=== PATIENT | male | born 1955 | race Two or more races ===

== ENCOUNTER 2024-12-29 18:04 | Inpatient (IN) | payer MEDICAID, SELFPAY ==
[2024-12-29 18:19] VITALS: BP 105/64; PULSE 93; RESP 17; TEMP 37.5; O2SAT 90; BMI 24.0
--- NOTE | 2024-12-29 18:32 | EKG_ITS ---
[facility] Test Date: 2024-12-29 Pat Name: YOSSI MARQUEZ Department: Room: - Gender: Male Non Clinical Advisor: : 1955 Requested By: Josemanuel Sahni Order Number: [id number] Reading MD: Josemanuel Sahni Measurements Intervals [place] Rate: 86 P: 77 DC: 131 QRS: 83 QRSD: 82 T: 54 QT: 348 QTc: 418 Interpretive Statements SINUS RHYTHM WITH SINUS ARRHYTHMIA POSSIBLE LEFT ATRIAL ENLARGEMENT [-0.1mV P-WAVE IN V1/V2] Compared to ECG 01/01/2020 23:06:50 No significant changes /store/S0/[id number]/ecg/[id number].pdf
--- NOTE | 2024-12-29 18:32 | XR_ITS ---
Reason redo views The vertebrae are reviewed 2 views ABDOMEN: December 29, 2024 1846 hours INDICATION: Shortness of breath chest pain coughing for 3 weeks. FINDINGS: Prominent pneumonia in the lingular segment left upper lobe Normal heart size Moderate hyperexpansion Prominent central pulmonary arteries Accentuation of basilar bronchovascular markings Prominent osteopenia IMPRESSION: COPD Significant pneumonia lingular segment left upper lobe Suspicious for pulmonary artery hypertension Bronchitis pattern
--- NOTE | 2024-12-29 18:32 | XR_ITS ---
Examination: Duplex scan of the upper extremity, unilateral left. Date and time of exam: December 29, 2024 1854 hours INDICATIONS: Left arm swelling and pain today Technique: Duplex scan of the extremity veins using B-mode/grayscale imaging and Doppler spectral analysis and color flow Attention is directed to internal echogenicity, compression and augmentation involving these veins, color flow assessment, spectral analysis Findings: Positive for occlusive acute deep vein thrombus involving the left subclavian vein. IMPRESSION: Positive for acute deep vein thrombus involving the left subclavian vein
--- NOTE | 2024-12-29 18:33 | EDRME_ITS ---
Rapid Medical Screening Exam [facility] Arrival date/time: 12/29/24 18:04 69M with no known PMH (patient smokes and drinks regularly) presents to ED with 1 day of LUE pain and swelling. Patient has also had 1 month of worsening cough and SOB. Patient only recently started going to a PCP and finished a course of some unknown ABX, which did not relieve symptoms. Chief Complaint: Extremity Problem,Nontraumatic Vital signs: Vital Signs Temperature 99.5 F 12/29/24 18:19 Pulse Rate 93 12/29/24 18:19 Respiratory Rate 17 12/29/24 18:19 Blood Pressure 105/64 12/29/24 18:19 Pulse Oximetry (%) 90 L 12/29/24 18:19 Oxygen Delivery Method Room Air 12/29/24 18:19
--- NOTE | 2024-12-29 19:17 | XR_ITS ---
Examination: CTA chest with intravenous contrast 2-D reconstructions 3-D reconstructions, vascular Date and time of exam: December 29, 2024 2042 hours INDICATIONS: Chest pain for cement beginning 2 days ago, positive DVT study left upper extremity today involving the subclavian vein CTDI: vol (mGy) 12 DLP: (mGycm) 376 Technique: Multiple axial sections of the thorax have been obtained. 3 mm slice thickness, from below the hemidiaphragms to above the apices of the lungs. Mediastinal and lung density settings have been obtained. 2-D sagittal and coronal reconstructions. 3-D angiographic renderings, 3-D volume renderings, 3D post processing, vascular maximum intensity projections obtained. Contrast administered is 100 cc Isovue 370 intravenous. Low dose protocols were performed. One or more of the following dose reduction techniques were used; automated exposure control, adjustment of the mA and/or KV according to patient size, use of iterative reconstruction technique. Findings: No thoracic aortic aneurysmal dilatation or dissection No pulmonary artery emboli Bronchiectasis in the right mid lung and lingular segment with pneumonia in the lingular segment Also bronchiectasis in both lower lung zones and mild pneumonia right base 4 cm densely calcified right liver mass No gallstones Abnormal enlargement, hepatic duct 20 mm No hydronephrosis IMPRESSION: Negative for pulmonary artery emboli Bronchiectasis right mid lung lingular segment left upper lobe and both bases Pneumonia lingular segment left upper lobe and right base Recommend hepatobiliary sonography follow-up to evaluate the enlarged common hepatic duct
[2024-12-29] MEDS: ALBUTEROL/IPRATROPIUM (Duoneb) RT SOL 3 ML NEBU INH (19:29)
[2024-12-29 19:30] VITALS: PULSE 84; RESP 18; O2SAT 100
[2024-12-29 19:35] LABS: Lactate (Lactic Acid) 0.8 mMol/L (0.4-2.0)
[2024-12-29 19:38] LABS: Basophils # (Auto) 0.2 Thou/mm3 (0.0-0.2); Basophils % (Auto) 1 % (0-2.5); Eosinophils # (Auto) 1.6 Thou/mm3 (0.0-0.5); Eosinophils % (Auto) 10 % (0-10); Hematocrit 34.0 % (41.0-53.0); Hemoglobin 10.8 g/dL (13.5-16.0); Immature Granulocytes Auto 0.12 Thou/mm3 (0.00-0.00); Lymphocytes # (Auto) 2.1 Thou/mm3 (1.0-4.8); Lymphocytes % (Auto) 13 % (10-50); Mean Corpuscular HGB Conc 31.8 g/dl (31.0-37.0); Mean Corpuscular Hemoglobin 30.5 pg (25.0-35.0); Mean Corpuscular Volume 96 fL (80-100); Monocytes # (Auto) 0.8 Thou/mm3 (0.0-0.8); Monocytes % (Auto) 5 % (0-12); Neutrophils # (Auto) 11.9 Thou/mm3 (1.8-7.7); Neutrophils % (Auto) 71 % (37-80); Nucleated Red Blood Cell # 0.00 Thou/mm3 (0.00-0.00); Nucleated Red Blood Cell % 0 /100 WBC (0); Platelet Count 635 Thou/mm3 (140-440); RDW Standard Deviation 51.1 fL (35.1-43.9); Red Blood Count 3.54 Miln/mm3 (4.50-5.90); White Blood Count 16.7 Thou/mm3 (3.8-10.6)
[2024-12-29 19:58] LABS: INR 1.0 (0.9-1.3); Partial Thromboplastin Time 32.8 Seconds (22.0-36.0); Prothrombin Time 11.2 Seconds (9.0-12.2)
[2024-12-29 20:01] LABS: B-Type Natriuretic Peptide 62 pg/mL (0-100)
[2024-12-29 20:01] LABS: Collection Type, Urine Clean Catch
[2024-12-29 20:02] VITALS: BP 144/70; PULSE 78; RESP 12; TEMP 37.4; O2SAT 94
[2024-12-29 20:04] LABS: Sed Rate (ESR) 102 mm/hr (0-20)
[2024-12-29 20:13] LABS: Alanine Aminotransferase < 7 U/L (10-49); Albumin, Serum 4.1 gm/dL (3.4-4.8); Albumin/Globulin Ratio 1.1 (1.2-2.2); Alkaline Phosphatase 112 U/L (46-116); Anion Gap 8 (7-16); Aspartate Amino Transferase 17 U/L (0-34); BUN/Creatinine Ratio 20 Ratio (12-20); Bilirubin,Total 0.2 mg/dL (0.3-1.2); Blood Urea Nitrogen 18 mg/dL (9-23); C-Reactive Protein 7.7 mg/dL (0.0-0.9); Calcium 8.6 mg/dL (8.3-10.6); Calcium (Corrected) 8.6 mg/dL (8.5-10.1); Carbon Dioxide 26.2 mMol/L (20.0-31.0); Chloride 100 mMol/L (98-107); Creatinine (Component) 0.9 mg/dL (0.6-1.3); Estimated Creatinine Clearance 57.3 mL/min (>60); Globulin 3.7 gm/dL (2.3-3.5); Glucose 107 mg/dL (74-106); Magnesium 1.7 mg/dL (1.6-2.6); Osmolality,Calculated 270 (275-295); Potassium 4.3 mMol/L (3.4-5.1); Procalcitonin 0.09 ng/ml (0.0-0.49); Sodium 134 mMol/L (136-145); Total Protein 7.8 gm/dL (5.7-8.2); Troponin I < 0.002 ng/mL (0.0-0.045); eGFR > 60 See Note
[2024-12-29 20:13] LABS: Amorphous Crystals,Urine Present (Absent); Bacteria,Urine Rare; Bilirubin,Urine Negative (Negative); Blood,Urine 1+ (Negative); Calcium Oxalate Crystals,Urine Rare; Clarity,Urine Clear (Clear/Hazy); Color,Urine Yellow (Lt Yel-Yel); Glucose, Urine Negative (Negative); Hyaline Casts,Urine < 1 /hpf (0-1); Ketones,Urine Negative (Negative); Leukocyte Esterase,Urine Negative (Negative); Nitrite,Urine Negative (Negative); PH,Urine 6.0 (5.0-7.0); Protein,Urine Trace (Neg - Trace); RBC,Urine 7 /hpf (0-3); Specific Gravity,Urine 1.031 (1.001-1.035); Squamous Epithelial Cell,Urine < 1 /hpf (0-5); Urobilinogen,Urine Negative mg/dL (0.0-1.0); WBC,Urine 2 /hpf (0-5)
[2024-12-29 20:16] LABS: Amphetamine/Methamp Scrn,U Negative (Negative); Barbiturate Screen,Urine Negative (Negative); Benzodiazepines Screen,Urine Negative (Negative); Benzoylecgonine Screen, Ur Negative (Negative); Fentanyl Screen,Urine Negative (Negative); Opiate Screen,Urine Negative (Negative); THC Screen,Urine Negative (Negative)
--- NOTE | 2024-12-29 22:52 | PD.EDEXREM ---
ED Extremity Problem RME/HPI General Chief complaint: Extremity Problem,Nontraumatic Stated complaint: Left arm swollen, hot and red Time Seen by Provider: 12/29/24 19:46 Arrival date/time: 12/29/24 18:04 RME / HPI RME / HPI Narrative: 12/29/24 18:04 69M with no known PMH (patient smokes and drinks regularly) presents to ED with 1 day of LUE pain and swelling. Patient has also had 1 month of worsening cough and SOB. Patient only recently started going to a PCP and finished a course of some unknown ABX, which did not relieve symptoms. ------- Dr. Lane?s Main ED Evaluation: 69yo male with a recent dx of COPD presents to the ED for a chief complaint of LUE pain and swelling for the last 3 days. Patient's symptoms have worsened over the last 24 hours, so he came in for evaluation. Patient has been taking Tylenol at home with minimal improvement. Reports associated cough. No fever, chills or any other associated symptoms. Patient is not on steroids. He is a tobacco smoker. NKA. Related Data Home Medications ?Medication ?Instructions ?Recorded ?Confirmed Unobtainable 03/05/20 03/05/20 Allergies Allergy/AdvReac Type Severity Reaction Status Date / Time No Known Allergies Allergy Verified 12/29/24 18:10 Review of Systems Review of Systems Systems Reviewed: All systems reviewed, normal except as documented Past Medical History Past Medical History NEUROLOGIC: Negative Neurological Disorders CARDIAC: Negative Cardiac Disorders, Atrial Fibrillation or Congestive Heart Failure RESPIRATORY: Positive Chronic Obstructive Pulmonary Disease (COPD), Asthma (uses inhaler PRN) and Pneumonia; Negative Respiratory Disorders GASTROINTESTINAL: Negative Gastrointestinal Disorders or Hepatitis GENITOURINARY: Negative Genitourinary Disorders or Renal Disease MUSCULOSKELETAL: Negative Musculoskeletal Disorders ENT: Positive History of ENT Problems and Cataracts ENDOCRINE: Negative Diabetes Mellitus Type 1 or Diabetes Mellitus Type 2 HEMATOLOGIC: Negative Sickle Cell Disease PSYCHO/SOCIAL: Negative Psychiatric Problems, Depression or Anxiety OTHER HISTORY: Negative Autoimmune Disease, Falls, Anesthesia Reactions, MRSA, Human Immunodeficiency Virus (HIV), Chicken Pox, Measles, Mumps, Rubella (Romanian Measles), Pertussis, Clostridium Difficile or Cancer Family History FAMILY HISTORY: Negative Family Neurologic Problems, Family Respiratory Disorders, Family Cardiac Disorders or Family Gastrointestinal Problems Surgical History SURGICAL: Negative Cardiac Surgery, Endocrine Surgery, Ear Surgery, Abdominal Surgery, Nephrectomy or Joint Replacement Social History SMOKING STATUS: Current every day smoker SUBSTANCE USE: does not use ED Exam Narrative Physical exam: GENERAL APPEARANCE: alert and oriented x 4, well-developed, well-nourished, no acute distress VITALS: All vitals were reviewed and the pulse ox is 94% on room air, which is slightly hypoxic according to my interpretation. HEENT: Normocephalic, atraumatic; pupils equal, round, reactive to light; EOMI; mucous membranes pink, moist; oropharynx clear NECK: Supple LUNGS: no wheezes, no rales, mild rhonchi at the left base HEART: Regular rate, regular rhythm; normal S1, S2; no murmurs ABDOMEN: non distended; normal BS; soft, no tenderness, no guarding, no rebound; no masses, no organomegaly, no hernia BACK: no CVA tenderness EXTREMITIES: atraumatic; tenderness, edema, and increased warmth to the LUE NEUROLOGIC: awake; alert and oriented x4; cranial nerves II-XII grossly intact; no focal sensory or motor deficits PSYCHIATRIC: appropriate mood and affect SKIN: warm, dry, normal color; no rashes Course Quality Measures none Orders Category Date Time Status CT Screening NOW Care 12/29/24 19:17 Active EKG (ED ONLY) *Do not use* NOW Care 12/29/24 18:32 Completed Insert IV NOW Care 12/29/24 19:[address] angio chest Stat Exams 12/29/24 19:17 Completed EKG (ED Only) Stat Exams 12/29/24 18:32 Draft US venous doppler UE LT Stat Exams 12/29/24 18:32 Completed XR chest 2V Stat Exams 12/29/24 18:32 Completed B-Type Natriuretic Peptide Stat Lab 12/29/24 19:26 Completed C-Reactive Protein Stat Lab 12/29/24 19:26 Completed CBC Stat Lab 12/29/24 19:26 Completed Cocci Serology IgM with reflex to IgG [Cocci Serology, Lab 12/29/24 19:26 Received Unk History] Stat Comprehensive Metabolic Panel Stat Lab 12/29/24 19:26 Completed Drug Screen,Urine Stat Lab 12/29/24 19:55 Completed ESR [Sed Rate (ESR)] Stat Lab 12/29/24 19:26 Completed Lactate (Lactic Acid) Stat Lab 12/29/24 19:26 Completed Magnesium Stat Lab 12/29/24 19:26 Completed Partial Thromboplastin Time Stat Lab 12/29/24 19:26 Completed Procalcitonin Stat Lab 12/29/24 19:26 Completed Prothrombin Time with INR Stat Lab 12/29/24 19:26 Completed Troponin I Stat Lab 12/29/24 19:26 Completed Urinalysis Stat Lab 12/29/24 19:55 Completed Albuterol/Ipratr Rt Tiera [Duoneb Rt Tiera] Med 12/29/24 18:32 Discontinued 3 ml INH X1 ONE Vital Signs Vital signs: Vital Signs Temperature 99.5 F 12/29/24 18:19 Pulse Rate 93 12/29/24 18:19 Respiratory Rate 17 12/29/24 18:19 Blood Pressure 105/64 12/29/24 18:19 Pulse Oximetry (%) 90 L 12/29/24 18:19 Oxygen Delivery Method Room Air 12/29/24 18:19 PROCEDURES: Smoking Cessation Time Spent Discussing Smoking Cessation w/Patient (min): 5 Patient Acknowledges Need for Cessation: Yes Additional Comments: The patient was counseled as to the multiple risks to their health from continued use of tobacco products. It was explained that continuing to smoke may lead to multiple short and superintendent terminal negative health consequences, including but not limited to mouth/esophageal/lung cancer, COPD, and heart disease. The patient states she/he understands these risks and also understands the options and resources available to them to help them stop smoking. Nicotine replacement therapy, local hotlines, and local resources were discussed as viable options for helping them stop their tobacco use. The total time spent counseling the patient regarding tobacco cessation was 5 minutes. Extremity Problem MDM Narrative MDM Narrative:: Scribe Attestation: 12/29/24 Yenny Squires am scribing for and in the presence of Dr. Lane. Patient data External records reviewed:: [facility] previous records (Per chart review, patient has no relevant previous ED visits.) Clinical information provided by:: patient and family Social determinants that could affect healthcare access:: substance use (tobacco use) Patient has the following chronic illnesses:: COPD How is presenting disease/condition affected by chronic disease/condition?: uneffected by Evaluation data The following diagnostics were reviewed and interpreted by me:: lab results, radiology exam(s) and EKG tracing(s) Lab and/or radiology exams considered but not ordered:: none Interpretation Summary: WBC 16.7, Lactic Acid normal, Magnesium normal, CRP 7.7, Troponin normal, BNP normal, Procalcitonin normal, UDS negative. EKG done at 1835, NSR, rate of 86, normal intervals, normal axis, no acute ischemia, according to my interpretation. [facility] Report Signed Patient: YOSSI MARQUEZ. Record#: [id number] Birthdate: 1955 Age/Sex: 69 / M Location: [facility] Attending Dr: Ordering Physician: Josemanuel Sahni PA-C Date of Service: 12/29/24 Procedure(s): XR chest 2V Accession Number(s): [id number] cc: Marco A Markham MD; Josemanuel Sahni PA-C~ Reason redo views The vertebrae are reviewed 2 views ABDOMEN: December 29, 2024 1846 hours INDICATION: Shortness of breath chest pain coughing for 3 weeks. FINDINGS: Prominent pneumonia in the lingular segment left upper lobe Normal heart size Moderate hyperexpansion Prominent central pulmonary arteries Accentuation of basilar bronchovascular markings Prominent osteopenia IMPRESSION: COPD Significant pneumonia lingular segment left upper lobe Suspicious for pulmonary artery hypertension Bronchitis pattern Dictated By: Marco A Markham MD Signed By: <Electronically signed by Marco A Markham MD in [place] 12/29/241855 [facility] Report Signed Patient: YOSSI MARQUEZ. Record#: [id number] Birthdate: 1955 Age/Sex: 69 / M Location: [facility] Attending Dr: Ordering Physician: Josemanuel Sahni PA-C Date of Service: 12/29/24 Procedure(s): US venous doppler UE LT Accession Number(s): [id number] cc: Luis Alberto Conley PA-C; Marco A Markham MD; Josemanuel Sahni PA-C~ Examination: Duplex scan of the upper extremity, unilateral left. Date and time of exam: December 29, 2024 1854 hours INDICATIONS: Left arm swelling and pain today Technique: Duplex scan of the extremity veins using B-mode/grayscale imaging and Doppler spectral analysis and color flow Attention is directed to internal echogenicity, compression and augmentation involving these veins, color flow assessment, spectral analysis Findings: Positive for occlusive acute deep vein thrombus involving the left subclavian vein. IMPRESSION: Positive for acute deep vein thrombus involving the left subclavian vein Dictated By: Marco A Markham MD Signed By: <Electronically signed by Marco A Markham MD in [place]> 12/29/242106 [facility] Report Signed Patient: YOSSI MARQUEZ Record#: [id number] Birthdate: 1955 Age/Sex: 69 / M Location: [facility] Attending Dr: Ordering Physician: Josemanuel Sahni PA-C Date of Service: 12/29/24 Procedure(s): CT angio chest Accession Number(s): [id number] cc: Luis Alberto Conley PA-C; Marco A Markham MD; Josemanuel Sahni PA-C~ Examination: CTA chest with intravenous contrast 2-D reconstructions 3-D reconstructions, vascular Date and time of exam: December 29, 2024 2042 hours INDICATIONS: Chest pain for cement beginning 2 days ago, positive DVT study left upper extremity today involving the subclavian vein CTDI: vol (mGy) 12 DLP: (mGycm) 376 Technique: Multiple axial sections of the thorax have been obtained. 3 mm slice thickness, from below the hemidiaphragms to above the apices of the lungs. Mediastinal and lung density settings have been obtained. 2-D sagittal and coronal reconstructions. 3-D angiographic renderings, 3-D volume renderings, 3D post processing, vascular maximum intensity projections obtained. Contrast administered is 100 cc Isovue 370 intravenous. Low dose protocols were performed. One or more of the following dose reduction techniques were used; automated exposure control, adjustment of the mA and/or KV according to patient size, use of iterative reconstruction technique. Findings: No thoracic aortic aneurysmal dilatation or dissection No pulmonary artery emboli Bronchiectasis in the right mid lung and lingular segment with pneumonia in the lingular segment Also bronchiectasis in both lower lung zones and mild pneumonia right base 4 cm densely calcified right liver mass No gallstones Abnormal enlargement, hepatic duct 20 mm No hydronephrosis IMPRESSION: Negative for pulmonary artery emboli Bronchiectasis right mid lung lingular segment left upper lobe and both bases Pneumonia lingular segment left upper lobe and right base Recommend hepatobiliary sonography follow-up to evaluate the enlarged common hepatic duct Dictated By: Marco A Markham MD Signed By: <Electronically signed by Marco A Markham MD in [place]> 12/29/24 2106 Medications / Prescriptions Medications or Prescriptions considered but not ordered:: none Medication administrations:: Medication Administration History Discontinued Medications Albuterol/Ipratropium (Albuterol/Ipratropium (Duoneb) Rt Tiera 3 Ml Nebu) 3 ml INH X1 ONE Stop: 12/29/24 18:33 Last Admin: 12/29/24 19:29 Dose: 3 ml Documented By: DM see above Consultations Consultation(s) initiated? (list below): Yes Consultation #1 (Physician, Specialty, Details): Discussed case with the resident physician, attending Dr. Ledezma from Hospitalist service regarding admission. Discussed patients ED course, exam findings, labs, and radiology results. The Hospitalist agrees to accept the patient for admission. Time: 23:19 Diagnosis Extremity Problem Differential Diagnosis: cellulitis, deep venous thrombosis of upper extremity and other (upper extremity edema) Most likely diagnosis given after review of the tests above:: see clinical impression below Admission Indicated Admission indicated?: indicated Admission Request Was there a request for admission?: Yes Admission Attestation Admission request attestation: Discussed case with [] from Hospitalist service regarding admission. Discussed patients ED course, exam findings, labs, and radiology results. The Hospitalist [agrees,declines] to accept the patient for admission. Disposition Plan Disposition Plan: Admit Discharge Plan Plan Patient Disposition: Admit Acute Care w/in Hospital Prescriptions/Referrals Prescriptions/Med Rec: No Action Unobtainable Referrals: Luis Alberto Conley PA-C [Primary Care Provider] - In 1 week Problem List Clinical Impression: Deep venous thrombosis of upper extremity, Pneumonia Patient/Caregiver Discharge Instructions Print Language: Pakistani Stand Alone Forms: [facility] Award Info., Patient Portal Info Letter
[2024-12-30] VITALS (7 sets, daily range): BP systolic 114–147; BP diastolic 67–79; PULSE 76–107; RESP 16–95; TEMP 36.1–36.9; O2SAT 90–96; BMI 24.6
--- NOTE | 2024-12-30 | XR_ITS ---
MRI abdomen, without contrast. MRCP Date and time of exam: December 30, 2024, 1757 hours INDICATIONS: Enlarged common bile duct on CT examination December 29, 2024, right lower lobe liver lesion 5.0 x 4.6 cm on abdomen sonogram today Technique: Multiple axial and coronal images of the abdomen have been obtained with the Siemens 1.5T MRI scanner. Images obtained included T1 weighted transverse images, T2-weighted transverse images, T2-weighted transverse images fat-suppressed, T2 weighted haste fat suppressed transverse images, T1 weighted images, in and out of phase images, T2-weighted coronal images, breath hold, T2 weighted haze coronal images as well as T2 weighted coronal thick slab images, MRCP. Findings: The right lobe liver lesion 4.1 x 4.6 cm is a densely calcified mass on the CT examination, likely granuloma There is abnormal intrahepatic biliary tract dilatation There is abnormal extrahepatic biliary tract dilatation, common bile duct 13 mm Axial image 18 demonstrates 10 mm impacted stone in the distal common bile duct No pancreatic mass or dilated pancreatic duct No ascites. Spleen is not enlarged No hydronephrosis IMPRESSION: Prominent extrahepatic biliary tract dilatation secondary to 10 mm impacted stone in the distal common bile duct, recommend ERCP follow-up
--- NOTE | 2024-12-30 02:05 | PD.RESHP ---
Documentation for date of: 12/30/24 HPI History of Present Illness History of present illness: Mr. Coronel is a 69-year-old male with past medical history of COPD not on home oxygen and asthma who presents to the emergency department with left upper extremity swelling and pain for 3 days. He is accompanied by his daughter Rebekah. Patient also has shortness of breath and needs has increased sputum production that is clear, though he does have a chronic a chronic dry cough. Patient recently went to his primary care doctor (Dr. Luis Alberto Conley at [facility] in [facility]) 1 month ago where he was given an inhaler and started on levofloxacin which he completed a 10-day course. At that time his platelets were elevated to 800. Patient denies history of heart failure, DVT, stroke, PE, diabetes, or cancer. Patient has an extensive smoking history with a 1 PPD x 45 years, currently smokes. Patient has a history of binge drinking with hard alcohol. Last binge was 3 years ago. Patient denies recreational drug use and he lives at home with his . Denies family history of medical conditions including DVT, heart failure, stroke, other clotting disorders. NKDA. Denies recent travel history, denies recent illnesses, denies recent overuse of upper extremities. Patient lives at home with and usually sits at home and watches TV, mostly lives with sedentary lifestyle. In the ED patient was afebrile, vital signs stable. Labs significant for leukocytosis at 16.7 with elevated neutrophil and eosinophil count, normocytic anemia with hemoglobin 10.8 and hematocrit 34, thrombocytosis platelets 635, and mild hyponatremia at 134. ESR and CRP were both elevated. BNP and Pro-Yeison were both within normal limits. Left upper extremity venous Doppler was positive for DVT in the left subclavian vein. EKG showed normal sinus rhythm with heart rate 86 and QTc of 418. Chest x-ray showed prominent central pulmonary arteries concerning for pulmonary artery hypertension as well as left upper lobe consolidations concerning for pneumonia. Chest CTA was negative for pulmonary embolus, significant for bronchiectasis pattern in the right mid lingular segment, left upper lobe, right lower lobe and left lower lobe, and consolidation in the left upper lobe and right lower lobe concerning for pneumonia. It also showed an enlarged hepatic duct at 20 mm and a 4 cm calcified liver mass. Patient was given DuoNebs x 1 in the ED. Review of Systems Review of Systems Narrative Review of Systems: 14 point review of system negative other than HPI Exam Vital Signs Temp Pulse Resp BP Pulse Ox O2 Del Method 98.4 F 88 20 124/67 90 L Room Air 12/30/24 00:12/30/24 00:12/30/24 00:12/30/24 00:26 12/30/24 00:12/30/24 00:26 Narrative Exam General: No acute distress, well nourished, sitting Eye: PERRL, EOMI, normal conjunctiva, no scleral icterus HENT: Normocephalic, atraumatic, clear tympanic membranes, normal hearing, moist oral mucosa, no sinus tenderness Neck: Supple, non-tender, no carotid bruits, no JVD, no lymphadenopathy Lungs: Non-labored respirations, symmetric chest rise, +wheezing in bilateral lower lung tellez Heart: Normal S1 and S2, no S3 or S4 appreciated. Normal rate and regular rhythm, no murmurs, rubs gallops, or edema. Peripheral pulses intact bilaterally, capillary refill brisk distally Abdomen: Soft, non-tender, non-distended, normal bowel sounds, no masses Musculoskeletal: Normal range of motion. Skin: Edema, erythema, pain upon light palpation in the left upper extremity to shoulder. Right upper extremity without abnormalities. Neurologic: Alert, awake and oriented x3. Cranial nerves: II through XII grossly intact. Sensation intact in the bilateral upper extremities. Unable to test motor function as exam limited due to pain. Psychiatric: Cooperative, appropriate mood and affect Results: Labs 12/29/24 19:12/29/24 19:26 Labs: Short CBC 12/29/24 Range/Units 19: WBC 16.7 H (3.8-10.6) Thou/mm3 Hgb 10.8 L (13.5-16.0) g/dL Hct 34.0 L (41.0-53.0) % Plt Count 635 H (140-440) Thou/mm3 BMP 12/29/24 19: Sodium 134 L Potassium 4.3 Chloride 100 Carbon Dioxide 26.2 BUN 18 Creatinine 0.9 Glucose 107 H Calcium 8.6 Cardiac Enzymes 12/29/24 Range/Units 19: Troponin I < 0.002 (0.0-0.045) ng/mL Liver Function 12/29/24 Range/Units 19:26 Total Bilirubin 0.2 L (0.3-1.2) mg/dL AST 17 (0-34) U/L ALT < 7 L (10-49) U/L Alkaline Phosphatase 112 (46-116) U/L Albumin 4.1 (3.4-4.8) gm/dL Urine 12/29/24 Range/Units 19:55 Urine Color Yellow (Lt Yel-Yel) Urine Clarity Clear (Clear/Hazy) Urine pH 6.0 (5.0-7.0) Ur Specific [place] 1.031 (1.001-1.035) Urine Protein Trace (Neg - Trace) Urine Glucose (UA) Negative (Negative) Quality Measures Quality Measures none Advance care planning discussed with:: patient and child Medications Home Medications and Allergies Home Medications ?Medication ?Instructions ?Recorded ?Confirmed ?Type Unobtainable 03/05/20 03/05/20 History Allergies Allergy/AdvReac Type Severity Reaction Status Date / Time No Known Allergies Allergy Verified 12/29/24 18:10 Visit Medications Acetaminophen (Acetaminophen 325 Mg Tablet) 650 mg PO Q6H PRN PRN Reason: Fever >100.3 or pain Stop: 01/29/25 01:53 Albuterol/Ipratropium (Albuterol/Ipratropium (Duoneb) Rt Tiera 3 Ml Nebu) 3 ml INH Q4HRRT PRN PRN Reason: sob or wheezing Stop: 01/29/25 01:53 Apixaban (Apixaban 2.5 Mg Tablet) 10 mg PO BID ROGER Stop: 01/09/25 01:59 Ceftriaxone Sodium/Dextrose (Rocephin/D5w 1gm Iv Premix) 1 gm in 50 mls @ 100 mls/hr IV QDAY ROGER Stop: 01/06/25 01:51 Azithromycin 500 mg/ Sodium (Chloride) 250 mls @ 250 mls/hr IV QDAY ROGER Stop: 01/06/25 01:58 Ondansetron HCl (Ondansetron Inj 2 Mg/Ml Inj 2 Ml) 4 mg IVP Q6H PRN; Protocol PRN Reason: NAUSEA OR VOMITING Stop: 01/29/25 01:53 Sennosides (Senna Tablet) 1 tab PO QDAY PRN; Protocol PRN Reason: constipation Stop: 01/29/25 01:53 Discontinued Medications Albuterol/Ipratropium (Albuterol/Ipratropium (Duoneb) Rt Tiera 3 Ml Nebu) 3 ml INH X1 ONE Stop: 12/29/24 18:33 Last Admin: 12/29/24 19:29 Dose: 3 ml Sodium Chloride (Sodium Chloride Rt 10% 15 Ml Nebu) 5 ml INH X1 ONE Stop: 12/30/24 01:35 Sodium Chloride (Sodium Chloride Rt 10% 15 Ml Nebu) 5 ml INH X1 ONE Stop: 12/30/24 01:54 Assessment & Plan Plan Mr. Coronel is a 69-year-old male with past medical history of COPD not on home O2 and extensive tobacco use history who presents to the ED with left upper extremity DVT and pneumonia. # Left upper extremity DVT Initial presentation: Left upper extremity swelling, erythema, pain upon light touch that has gotten progressively worse over the past 3 days Left upper extremity venous Doppler showed a DVT in the left subclavian vein. DVT possibly provoked by infection, COPD, smoking. Unknown if patient has anatomic abnormality contributing to thoracic outlet syndrome. Plan: - Apixaban 10 mg twice daily x 10 days followed by apixaban 5 mg twice daily for at least 3 months - Left arm elevation above level of heart - Follow-up outpatient for further management and investigation of cause of DVT # Community-acquired pneumonia Patient has increased clear sputum, no blood, in addition to chronic dry cough Patient recently started on levofloxacin in November, completed 10 days. Failed outpatient management Plan: - Pending cocci IgM - Sputum culture pending - Started azithromycin IV and ceftriaxone 1 g daily for 3 days # Tobacco use Patient has an extensive smoking history with 1 pack/day for at least 40 to 50 years. Current smoker Plan: - Nicotine patch - Counseled patient on importance of smoking cessation # Leukocytosis In the setting of pneumonia, DVT, history of COPD Plan: - Continue to trend with CBC # Thrombocytosis Most likely reactive. In November patient's platelet count was 800 and, now 635 on admission Plan: - Continue to trend with CBC # Normocytic anemia In ED: Hemoglobin 10.8, hematocrit 34, MCV within normal limits Plan: - Continue to trend with CBC - Pending iron panel - Follow-up outpatient with PCP # Enlarged hepatic duct # 4 cm calcified liver mass Incidental finding on chest CTA LFTs unremarkable, though patient has a history of alcohol use including binge drinking. Last binge drinking episode 3 years ago Plan: - Follow-up with imaging in outpatient setting Plan discussed with Dr. Darien Massey, PGY1 Attending Provider Attestation/Addendum After examination of the patient and review of the clinical data I feel that this patient needs to be observed in the hospital for further treatment/evaluation. I have discussed and was present for the essential components of the history, physical examination, diagnosis, and treatment plan with the resident. I agree with the patient's care as documented by the resident and amended herein by me. Daryn Ledezma, DO. Although this document has been carefully reviewed, there may still be some phonetic and other typographical errors. These errors are purely grammatical due to imperfections in the software program and should not be construed in any way to compromise the substance of the patient's medical care during this visit Patient seen and evaluated in the ED. Patient is a 69-year-old male with a significant past medical history of COPD not on home oxygen, tobacco use, alcohol use who presented to the ED for left upper extremity extremity pain and edema which began approximately 3 days prior to admission. Of note, his daughter was at bedside who helped with medical history. Denies previous history of DVT/PE. As far as the patient's pneumonia goes, he was prescribed Levaquin in November however did not completely resolve. Patient subsequently admitted for left subclavian vein DVT and right base and left upper lobe pneumonia. In the ED, patient was on room air, SpO2 94%, patient was normotensive at time of bedside visit and afebrile. Significant labs include a WBC of 16.7, hemoglobin 10.8, elevated platelets at 635 which the patient appears to have a history of thrombophilia, CRP elevated 7.7, Pro-Yeison negative, CMP unremarkable, UA negative, lactic acid within normal limits. Chest x-ray is was performed, significant for COPD, left upper lobe pneumonia, possible PAH and bronchitis pattern. DVT ultrasound of the left upper extremity demonstrated a left subclavian vein DVT, a chest CT was also performed, PE ruled out, bronchiectasis demonstrated and right base and left upper lobe pneumonia was present. A 4 cm calcified liver mass in the right lobe was also noted patient was given a breathing treatment in ED. Patient will be admitted under observation to [facility]. For the patient's DVT, we will start the patient on a loading dose of Eliquis 10 mg twice daily for 7 days then he can be transition to 5 mg p.o. twice daily, we did explain to the patient and his daughter that he will need to be on this medication for at least 3 months and may need further outpatient workup for hypercoagulability. Unclear of the exact cause of the DVT at this time however tobacco use is a risk factor, appears to be unprovoked. May need outpatient hematology follow-up. Patient also admitted for pneumonia likely secondary to gram-negative organisms versus atypical organisms, started on ceftriaxone and azithromycin. Patient was also noted to be slightly anemic hence an iron panel was ordered which demonstrated mostly chronic disease and inflammation. Likely discharge in 1 to 2 days, the patient is doing well otherwise. We did extensively peer financial counselor the patient on tobacco cessation.
--- NOTE | 2024-12-30 02:13 | PC.NURSE ---
per MD Massey no blood cultures needed for patient, just the sputum cultures. She said ok to start antibiotics
[2024-12-30] MEDS: APIXABAN 2.5 MG TABLET 10 MG PO ×3 (02:22→20:52)
[2024-12-30 02:43] LABS: Ferritin 169 ng/mL (10.5-307.3); Iron 26 mcg/dL (65-175); Percent Iron Saturation 10 % (20-55); Total Iron Binding Capacity 251 mcg/dL (250-425); Unsaturated Iron Binding 225 (225-295)
[2024-12-30] MEDS: cefTRIAXone/D5w 1gm IV premix 1 GM/50 ML BAG IV ×2 (02:50→09:18)
[2024-12-30] MEDS: AZITHROMYCIN INJ 500 MG in SODIUM CHLORIDE 0.9% 250 ML 250 ML 250 MG IV (03:17)
[2024-12-30] MEDS: NICOTINE PATCH 21 MG/24 HR PATCH.TD24 TOP (04:37)
[2024-12-30 06:36] LABS: Basophils # (Auto) 0.2 Thou/mm3 (0.0-0.2); Basophils % (Auto) 1 % (0-2.5); Eosinophils # (Auto) 1.5 Thou/mm3 (0.0-0.5); Eosinophils % (Auto) 10 % (0-10); Hematocrit 29.9 % (41.0-53.0); Hemoglobin 9.7 g/dL (13.5-16.0); Immature Granulocytes Auto 0.11 Thou/mm3 (0.00-0.00); Lymphocytes # (Auto) 1.6 Thou/mm3 (1.0-4.8); Lymphocytes % (Auto) 11 % (10-50); Mean Corpuscular HGB Conc 32.4 g/dl (31.0-37.0); Mean Corpuscular Hemoglobin 30.5 pg (25.0-35.0); Mean Corpuscular Volume 94 fL (80-100); Monocytes # (Auto) 0.9 Thou/mm3 (0.0-0.8); Monocytes % (Auto) 6 % (0-12); Neutrophils # (Auto) 10.6 Thou/mm3 (1.8-7.7); Neutrophils % (Auto) 71 % (37-80); Nucleated Red Blood Cell # 0.00 Thou/mm3 (0.00-0.00); Nucleated Red Blood Cell % 0 /100 WBC (0); Platelet Count 600 Thou/mm3 (140-440); RDW Standard Deviation 50.3 fL (35.1-43.9); Red Blood Count 3.18 Miln/mm3 (4.50-5.90); White Blood Count 14.9 Thou/mm3 (3.8-10.6)
[2024-12-30 07:18] LABS: Alanine Aminotransferase < 7 U/L (10-49); Albumin, Serum 3.7 gm/dL (3.4-4.8); Albumin/Globulin Ratio 1.1 (1.2-2.2); Alkaline Phosphatase 107 U/L (46-116); Anion Gap 10 (7-16); Aspartate Amino Transferase 16 U/L (0-34); BUN/Creatinine Ratio 20 Ratio (12-20); Bilirubin,Total < 0.2 mg/dL (0.3-1.2); Blood Urea Nitrogen 16 mg/dL (9-23); Calcium 8.3 mg/dL (8.3-10.6); Calcium (Corrected) 8.5 mg/dL (8.5-10.1); Carbon Dioxide 27.4 mMol/L (20.0-31.0); Chloride 101 mMol/L (98-107); Creatinine (Component) 0.8 mg/dL (0.6-1.3); Estimated Creatinine Clearance 64.5 mL/min (>60); Globulin 3.4 gm/dL (2.3-3.5); Glucose 107 mg/dL (74-106); Magnesium 2.1 mg/dL (1.6-2.6); Osmolality,Calculated 276 (275-295); Phosphorous 3.3 mg/dL (2.4-5.1); Potassium 4.1 mMol/L (3.4-5.1); Sodium 138 mMol/L (136-145); Total Protein 7.1 gm/dL (5.7-8.2); eGFR > 60 See Note
--- NOTE | 2024-12-30 07:58 | PD.RESPRO ---
Documentation for date of: 12/30/24 Subjective Subjective Interval history: No acute events overnight Patient underwent ultrasound imaging revealing dilated biliary duct and right lower lobe liver mass Exam Vital Signs Temp Pulse Resp BP Pulse Ox O2 Del Method 98.3 F 83 20 136/69 H 91 L Nasal Cannula 12/30/24 04:34 12/30/24 04:34 12/30/24 04:34 12/30/24 04:34 12/30/24 04:34 12/30/24 04:34 24-hour vital signs reviewed afebrile O2 sat 90s to 95 on nasal cannula Heart rate within normal limits Narrative Exam General: No acute distress, well nourished, sitting Eye: PERRL, EOMI, normal conjunctiva, no scleral icterus HENT: Normocephalic, atraumatic, clear tympanic membranes, normal hearing, moist oral mucosa, no sinus tenderness Neck: Supple, non-tender, no carotid bruits, no JVD, no lymphadenopathy Lungs: Non-labored respirations, symmetric chest rise, +wheezing in bilateral lower lung tellez, crackles in left mid lung tellez, no crackles appreciated on right lung base Heart: Normal S1 and S2, no S3 or S4 appreciated. Normal rate and regular rhythm, no murmurs, rubs gallops, or edema. Peripheral pulses intact bilaterally, capillary refill brisk distally Abdomen: Soft, non-tender, non-distended, normal bowel sounds, no masses Musculoskeletal: Normal range of motion. Left upper extremity with edema from shoulder to wrist. Elevated with pillows underneath in bed Skin: Edema, erythema, mild pain upon palpation in the left upper extremity to shoulder,. Right upper extremity without abnormalities. Neurologic: Alert, awake and oriented x3. Cranial nerves: II through XII grossly intact. Sensation intact in the bilateral upper extremities. Unable to test motor function as exam limited due to pain. Psychiatric: Cooperative, appropriate mood and affect Objective Labs 12/31/24 04:50 12/31/24 04:50 Labs: Laboratory Results - last 24 hr 12/29/24 12/29/24 12/30/24 19:26 19:55 04:40 WBC 16.7 H 14.9 H RBC 3.54 L 3.18 L Hgb 10.8 L 9.7 L Hct 34.0 L 29.9 L MCV 96 94 MCH 30.5 30.5 MCHC 31.8 32.4 RDW Std Deviation 51.1 H 50.3 H Plt Count 635 H 600 H D Neut % (Auto) 71 71 Lymph % (Auto) 13 11 [place] % (Auto) 5 6 Eos % (Auto) 10 10 Baso % (Auto) 1 1 Neut # (Auto) 11.9 H 10.6 H Lymph # (Auto) 2.1 1.6 [place] # (Auto) 0.8 0.9 H Eos # (Auto) 1.6 H 1.5 H Baso # (Auto) 0.2 0.2 Immature Gran # (Auto) 0.12 H 0.11 H Absolute Nucleated RBC 0.00 0.00 Immature Gran % 1 H 1 H Nucleated RBC % 0 0 ESR 102 H PT 11.2 INR 1.0 APTT 32.8 Sodium 134 L 138 Potassium 4.3 4.1 Chloride 100 101 Carbon Dioxide 26.2 27.4 Anion Gap 8 10 BUN 18 16 Creatinine 0.9 0.8 Estim Creat Clear Calc 57.3 L 64.5 eGFR > 60 > 60 BUN/Creatinine Ratio 20 20 Glucose 107 H 107 H Calculated Osmolality 270 L 276 Lactic Acid 0.8 Calcium 8.6 8.3 Corrected Calcium 8.6 8.5 Phosphorus 3.3 Magnesium 1.7 2.1 Iron 26 L TIBC 251 Iron Saturation 10 L Unsat Iron Binding 225 Ferritin 169 Total Bilirubin 0.2 L < 0.2 L AST 17 16 ALT < 7 L < 7 L Alkaline Phosphatase 112 107 Troponin I < 0.002 C-Reactive Prot, Quant 7.7 H B-Natriuretic Peptide 62 Total Protein 7.8 7.1 Albumin 4.1 3.7 Globulin 3.7 H 3.4 Albumin/Globulin Ratio 1.1 L 1.1 L Procalcitonin 0.09 Ur Collection Type Clean Catch Urine Color Yellow Urine Clarity Clear Urine pH 6.0 Ur Specific [place] 1.031 Urine Protein Trace Urine Glucose (UA) Negative Urine Ketones Negative Urine Blood 1+ A Urine Nitrite Negative Urine Bilirubin Negative Urine Urobilinogen (Auto) Negative Ur Leukocyte Esterase Negative Urine RBC 7 H Urine WBC 2 Ur Squamous Epith Cells < 1 Calcium Oxalate Crystal Rare Amorphous Crystals Present A Urine Bacteria Rare Hyaline Casts < 1 Urine Opiates Screen Negative Urine Fentanyl Screen Negative Ur Barbiturates Screen Negative U Amphetamin/Meth Scrn Negative U Benzodiazepines Scrn Negative U Cocaine Metab Screen Negative U Marijuana (THC) Screen Negative Quality Measures Quality Measures none Advance care planning discussed with:: patient, spouse and child Assessment & Plan Assessment Current Active Medications: Generic Name Dose Route Start Last Admin Trade Name Freq PRN Reason Stop Dose Admin Acetaminophen 650 mg 12/30/24 01:54 Acetaminophen 325 Mg Tablet PO 01/29/25 01:53 Q6H PRN Fever >100.3 or pain Albuterol/Ipratropium 3 ml 12/30/24 01:54 Albuterol/Ipratropium (Duoneb) Rt Tiera 3 Ml Nebu INH 01/29/25 01:53 Q4HRRT PRN sob or wheezing Apixaban 10 mg 12/30/24 02:00 12/30/24 02:22 Apixaban 2.5 Mg Tablet PO 01/09/25 01:59 10 mg BID ROGER Administration Ceftriaxone Sodium/Dextrose 1 gm in 50 mls @ 100 mls/hr 12/30/24 01:52 12/30/24 03:20 Rocephin/D5w 1gm Iv Premix IV 01/06/25 01:51 Infused QDAY ROGER Infusion Azithromycin 500 mg/ Sodium 250 mls @ 250 mls/hr 12/30/24 01:59 12/30/24 03:17 Chloride IV 01/06/25 01:58 250 mls/hr QDAY ROGER Administration Ondansetron HCl 4 mg 12/30/24 01:54 Ondansetron Inj 2 Mg/Ml Inj 2 Ml IVP 01/29/25 01:53 Q6H PRN NAUSEA OR VOMITING Protocol Sennosides 1 tab 12/30/24 01:54 Senna Tablet PO 01/29/25 01:53 QDAY PRN constipation Protocol Plan Mr. Coronel is a 69-year-old male with past medical history of COPD not on home O2 and extensive tobacco use history who presents to the ED with left upper extremity DVT and pneumonia. Incidental finding of liver mass currently undergoing treatment for DVT with apixaban and receiving IV antibiotics for CAP, and ongoing workup of liver mass. # Left upper extremity DVT Initial presentation: Left upper extremity swelling, erythema, pain upon light touch that has gotten progressively worse over the past 3 days Left upper extremity venous Doppler showed a DVT in the left subclavian vein. DVT possibly provoked by infection, COPD, smoking. Unknown if patient has anatomic abnormality contributing to thoracic outlet syndrome. Plan: - Apixaban 10 mg twice daily x 10 days followed by apixaban 5 mg twice daily for at least 3 months - Left arm elevation above level of heart - Follow-up outpatient for further management and investigation of cause of DVT # Community-acquired pneumonia Patient has increased clear sputum, no blood, in addition to chronic dry cough Patient recently started on levofloxacin in November, completed 10 days. Failed outpatient management Plan: - Pending cocci IgM - Sputum culture pending - Started azithromycin IV and ceftriaxone 1 g daily for 3 days # Enlarged hepatic duct # 4 cm calcified liver mass Incidental finding on chest CTA, LFTs unremarkable, though patient has a history of alcohol use including binge drinking. Last binge drinking episode 3 years ago Dx - Liver ultrasound: 5 x 4.6 mm mass noted on right lower lobe, noted enlarged hepatic duct - MR abdomen with and without contrast pending - MRCP pending # Tobacco use Patient has an extensive smoking history with 1 pack/day for at least 40 to 50 years. Current smoker Discussed with pharmacy alternatives to patch or possible supplemental nicotine cessation agents that could be used while inpatient however they are not currently on formulary (for example lozenges or gum) Patient describes intense feeling of anxiety surrounding inability to smoke while in the hospital Plan: - Continue nicotine patch 21 daily - Hydroxyzine 10 mg every 6 hours as needed - Counseled patient on importance of smoking cessation # Leukocytosis-resolving In the setting of pneumonia, DVT, history of COPD WBC downtrending Plan: - Continue to trend with CBC # Thrombocytosis Most likely reactive. In November patient's platelet count was 800 and, 635 on admission Plan: - Continue to trend with CBC # Normocytic anemia In ED: Hemoglobin 10.8, hematocrit 34, MCV within normal limits Plan: - Continue to trend with CBC - Low iron, low iron saturation, ferritin within normal limits - Follow-up outpatient with PCP Dispo: To home, patient able to ambulate. Diet: Regular diet Bowel Reg: Senna 1 tab daily as needed VTE ppx: Apixaban 10 mg GI ppx: Not indicated Code status: Full Case discussed with my senior resident Dr. Gauthier Case discussed with my attending Dr. Amy Hilton MD PGY-1 Attending Provider Attestation/Addendum I attest that I was physically present for the evaluation, physical examination, lab and imaging review of the patient with the residents. I discussed the case with the residents and agree with the findings and plans of care as documented above. Patient is a 69 years old male with past medical history of COPD, extensive tobacco use who presented to the ED with left upper extremity swelling and pain. Patient was found to have left upper extremity DVT and community-acquired pneumonia and was admitted for observation. Continues to be on Eliquis 10 twice daily for DVT along with Rocephin and azithromycin for pneumonia. Chest CTA was obtained overnight, which showed concern for calcified liver mass and dilatation of hepatic duct. Liver ultrasound was ordered which showed cholelithiasis and enlarged CBD along with right liver lobe lesion, 5 x 4.6 cm. We will obtain MRCP and abdominal MRI to further evaluate biliary tree and liver mass. Patient also endorsed decreased appetite and weight loss. We will also obtain cancer markers including AFP, CEA and CA 19-9. Inez Reyes MD
--- NOTE | 2024-12-30 10:29 | XR_ITS ---
Examination: Abdomen sonogram, Limited Date and time of exam: December 30, 2024, 1110 hrs. Patient's: Enlarged common bile duct on CT examination yesterday Technique: Real-time [place] scale transabdominal sonographic images of the upper abdomen obtained. Findings: Cholelithiasis, gallbladder wall measures 0.4 cm Bile duct is enlarged 14 mm no definite stones. Pancreatic head 3.0 cm Liver 14.8 cm hepatic biliary tract dilatation Right lower lobe liver mass 5.0 x 4.6 cm Normal hepatopedal portal venous flow Patent IVC Impression: Cholelithiasis Enlarged common bile duct Right lobe liver lesion as above. Recommend MRI abdomen pre and postcontrast, MRCP follow-up
--- NOTE | 2024-12-30 15:45 | XR_ITS ---
Examination: MRI abdomen with intravenous contrast. MRI abdomen without intravenous contrast. Date and time of exam: December 30, 2024 at 1557 hours INDICATIONS: Biliary tract dilatation, dilated common duct on ultrasound of the abdomen December 30, 2024 Technique: Multiple axial, sagittal and coronal sections of the abdomen obtained. Transverse images, TR 6020, TE 107. T1 weighted transverse images, TR 582, TE 9.5. T2-weighted sagittal images, TR 4000, TE 105. T2-weighted sagittal images, TR 4000, TE 5. Coronal images, TR 4210, TE 107. Axial and coronal images are obtained post 19 cc intravenous injection, gadolinium. Findings: 4 cm calcified mass in the liver, noted on the prior CT examination December 29, 2024, which does not enhance on the postcontrast images Marked abnormal extrahepatic biliary tract dilatation including common bile duct 13 mm 10 mm impacted stone in the distal common bile duct Pancreas is not enlarged No hydronephrosis IMPRESSION: 4 cm benign nonenhancing calcified mass in the liver. Marked abnormal extrahepatic biliary tract dilatation secondary to 10 mm impacted stone in the distal common bile duct
[2024-12-30 16:48] LABS: Glucose Estimated Average 126 mg/dL (80-131); Hemoglobin A1C 6.0 % Hgb (4.8-6.0)
[2024-12-31] VITALS (7 sets, daily range): BP systolic 95–131; BP diastolic 48–71; PULSE 62–107; RESP 16–19; TEMP 36.1–37.1; O2SAT 92–97; BMI 14.0
[2024-12-31 06:34] LABS: Basophils # (Auto) 0.2 Thou/mm3 (0.0-0.2); Basophils % (Auto) 2 % (0-2.5); Eosinophils # (Auto) 1.4 Thou/mm3 (0.0-0.5); Eosinophils % (Auto) 11 % (0-10); Hematocrit 30.1 % (41.0-53.0); Hemoglobin 9.9 g/dL (13.5-16.0); Immature Granulocytes Auto 0.11 Thou/mm3 (0.00-0.00); Lymphocytes # (Auto) 1.6 Thou/mm3 (1.0-4.8); Lymphocytes % (Auto) 12 % (10-50); Mean Corpuscular HGB Conc 32.9 g/dl (31.0-37.0); Mean Corpuscular Hemoglobin 30.7 pg (25.0-35.0); Mean Corpuscular Volume 94 fL (80-100); Monocytes # (Auto) 0.8 Thou/mm3 (0.0-0.8); Monocytes % (Auto) 6 % (0-12); Neutrophils # (Auto) 9.4 Thou/mm3 (1.8-7.7); Neutrophils % (Auto) 70 % (37-80); Nucleated Red Blood Cell # 0.00 Thou/mm3 (0.00-0.00); Nucleated Red Blood Cell % 0 /100 WBC (0); Platelet Count 647 Thou/mm3 (140-440); RDW Standard Deviation 49.8 fL (35.1-43.9); Red Blood Count 3.22 Miln/mm3 (4.50-5.90); White Blood Count 13.4 Thou/mm3 (3.8-10.6)
[2024-12-31 06:52] LABS: Alanine Aminotransferase 15 U/L (10-49); Albumin, Serum 3.5 gm/dL (3.4-4.8); Albumin/Globulin Ratio 1.1 (1.2-2.2); Alkaline Phosphatase 114 U/L (46-116); Anion Gap 9 (7-16); Aspartate Amino Transferase 39 U/L (0-34); BUN/Creatinine Ratio 14 Ratio (12-20); Bilirubin,Total 0.2 mg/dL (0.3-1.2); Blood Urea Nitrogen 10 mg/dL (9-23); Calcium 8.4 mg/dL (8.3-10.6); Calcium (Corrected) 8.8 mg/dL (8.5-10.1); Carbon Dioxide 28.7 mMol/L (20.0-31.0); Chloride 97 mMol/L (98-107); Creatinine (Component) 0.7 mg/dL (0.6-1.3); Estimated Creatinine Clearance 73.7 mL/min (>60); Globulin 3.3 gm/dL (2.3-3.5); Glucose 100 mg/dL (74-106); Osmolality,Calculated 269 (275-295); Potassium 4.1 mMol/L (3.4-5.1); Sodium 135 mMol/L (136-145); Total Protein 6.8 gm/dL (5.7-8.2); eGFR > 60 See Note
[2024-12-31 09:00] LABS: Magnesium 1.5 mg/dL (1.6-2.6); Phosphorous 3.7 mg/dL (2.4-5.1)
--- NOTE | 2024-12-31 09:29 | ESPR_ITS ---
Documentation for date of: 12/31/24 Subjective Subjective Interval history: Patient seen and examined at bedside this morning. He reports feeling better overall and denies any new symptoms overnight. Left arm remains swollen and mildly painful. Still coughing, but sputum production has decreased. Denies fever, chills, chest pain, dyspnea at rest, abdominal pain, nausea, or vomiting. Tolerating diet. States he is aware of plans. Patient removed nasal cannula overnight and reapplied it himself, currently on nasal cannula with stable O2 sats. Daughter was contacted and consent obtained for ERCP. Given unavailability of GI specialist Dr. Sethi, transfer to another facility is being arranged. Exam Vital Signs Temp Pulse Resp BP Pulse Ox O2 Del Method O2 Flow Rate 97.4 F 83 18 131/71 H 93 L Room Air 1 12/31/24 08:00 12/31/24 08:00 12/31/24 08:00 12/31/24 08:00 12/31/24 08:00 12/31/24 08:00 12/30/24 08:41 Narrative Exam General: No acute distress, well nourished, sitting Eye: PERRL, EOMI, normal conjunctiva, no scleral icterus HENT: Normocephalic, atraumatic, clear tympanic membranes, normal hearing, moist oral mucosa, no sinus tenderness Neck: Supple, non-tender, no carotid bruits, no JVD, no lymphadenopathy Lungs: Non-labored respirations, symmetric chest rise, +wheezing in bilateral lower lung tellez, crackles in left mid lung tellez, no crackles appreciated on right lung base Heart: Normal S1 and S2, no S3 or S4 appreciated. Normal rate and regular rhythm, no murmurs, rubs gallops, or edema. Peripheral pulses intact bilaterally, capillary refill brisk distally Abdomen: Soft, non-tender, non-distended, normal bowel sounds, no masses Musculoskeletal: Normal range of motion. Left upper extremity with edema from shoulder to wrist. Elevated with pillows underneath in bed Skin: Edema, erythema, mild pain upon palpation in the left upper extremity to shoulder,. Right upper extremity without abnormalities. Neurologic: Alert, awake and oriented x3. Cranial nerves: II through XII grossly intact. Sensation intact in the bilateral upper extremities. Unable to test motor function as exam limited due to pain. Psychiatric: Cooperative, appropriate mood and affect Objective Labs 12/31/24 04:50 12/31/24 04:50 Labs: Laboratory Results - last 24 hr 12/30/24 12/31/24 12/31/24 16:17 04:50 04:52 WBC 13.4 H RBC 3.22 L Hgb 9.9 L Hct 30.1 L MCV 94 MCH 30.7 MCHC 32.9 RDW Std Deviation 49.8 H Plt Count 647 H D Neut % (Auto) 70 Lymph % (Auto) 12 Nelson % (Auto) 6 Eos % (Auto) 11 H Baso % (Auto) 2 Neut # (Auto) 9.4 H Lymph # (Auto) 1.6 Nelson # (Auto) 0.8 Eos # (Auto) 1.4 H Baso # (Auto) 0.2 Immature Gran # (Auto) 0.11 H Absolute Nucleated RBC 0.00 Immature Gran % 1 H Nucleated RBC % 0 Sodium 135 L Potassium 4.1 Chloride 97 L Carbon Dioxide 28.7 Anion Gap 9 BUN 10 Creatinine 0.7 Estim Creat Clear Calc 73.7 eGFR > 60 BUN/Creatinine Ratio [address] Glu mg/dL 126 Hemoglobin A1c 6.0 Calculated Osmolality 269 L Calcium 8.4 Corrected Calcium 8.8 Phosphorus 3.7 Magnesium 1.5 L Total Bilirubin 0.2 L AST 39 H ALT 15 Alkaline Phosphatase 114 Total Protein 6.8 Albumin 3.5 Globulin 3.3 Albumin/Globulin Ratio 1.1 L Quality Measures Quality Measures none Advance care planning discussed with:: patient and child Assessment & Plan Assessment Current Active Medications: Generic Name Dose Route Start Last Admin Trade Name Freq PRN Reason Stop Dose Admin Acetaminophen 650 mg 12/30/24 01:54 Acetaminophen 325 Mg Tablet PO 01/29/25 01:53 Q6H PRN Fever >100.3 or pain Albuterol/Ipratropium 3 ml 12/30/24 01:54 Albuterol/Ipratropium (Duoneb) Rt Tiera 3 Ml Nebu INH 01/29/25 01:53 Q4HRRT PRN sob or wheezing Apixaban 10 mg 12/30/24 02:00 12/30/24 20:52 Apixaban 2.5 Mg Tablet PO 01/09/25 01:59 10 mg BID ROGER Administration Hydroxyzine HCl 10 mg 12/30/24 18:27 Hydroxyzine Hcl 10 Mg Tablet PO 01/29/25 18:26 Q6HR PRN aNxiety with smokng Ceftriaxone Sodium/Dextrose 1 gm in 50 mls @ 100 mls/hr 12/30/24 01:52 12/30/24 09:18 Rocephin/D5w 1gm Iv Premix IV 01/06/25 01:51 100 mls/hr QDAY ROGER Administration Azithromycin 500 mg/ Sodium 250 mls @ 250 mls/hr 12/31/24 09:00 Chloride IV 01/06/25 01:58 QDAY ROGER Ondansetron HCl 4 mg 12/30/24 01:54 Ondansetron Inj 2 Mg/Ml Inj 2 Ml IVP 01/29/25 01:53 Q6H PRN NAUSEA OR VOMITING Protocol Sennosides 1 tab 12/30/24 01:54 Senna Tablet PO 01/29/25 01:53 QDAY PRN constipation Protocol Plan Mr. Coronel is a 69-year-old male with a history of COPD and tobacco use, admitted with left upper extremity DVT and multifocal pneumonia. During workup, he was found to have a 10 mm impacted stone in the distal common bile duct with marked biliary dilation. Although currently asymptomatic from a GI standpoint (no abdominal pain, jaundice, or fever), he is at risk for developing cholangitis or further complications. Given that our GI specialist is unavailable, we obtained consent from the patient?s daughter to proceed with ERCP and have initiated the transfer process to a facility that can perform the procedure. Apixaban was held, and he has been transitioned to a heparin drip in preparation. His pneumonia is clinically improving, and his left arm swelling from the DVT remains stable with mild tenderness. He remains hemodynamically stable and tolerating diet well. # Choledocholithiasis 10 mm impacted stone in distal common bile duct seen on MRCP, with prominent extrahepatic biliary tract dilation. Liver ultrasound confirmed cholelithiasis and enlarged CBD. No current signs of cholangitis (afebrile, no RUQ pain, LFTs normal). Plan: * Consent obtained from daughter for ERCP * Our GI (Dr. Sethi) unavailable --> transfer initiated to facility with ERCP capability * Apixaban held, started heparin drip in preparation for potential procedure * Monitor for signs of cholangitis or worsening obstruction * Continue to trend LFTs # Left Upper Extremity DVT Confirmed by venous Doppler in left subclavian vein; likely provoked (smoking, infection, possible thoracic outlet). Plan: * Apixaban stopped, transitioned to heparin drip due to ERCP planning * Elevate limb above heart * Monitor for progression, embolic symptoms * Outpatient hematology referral after discharge # Community-Acquired Pneumonia (CAP) Multifocal pneumonia on imaging (CISCO, RLL); patient clinically improving with decreased sputum, afebrile. Plan: * Continue ceftriaxone 1g IV daily + azithromycin IV * Monitor WBC, respiratory exam * Cocci serology and sputum culture pending # Liver Mass (Incidental) 4 cm benign-appearing, calcified, non-enhancing lesion on MRI. Likely unrelated to biliary obstruction. Plan: * Tumor markers ordered (AFP, CA 19-9, CEA) ? pending * No acute intervention * Recommend outpatient hepatology follow-up after discharge # Tobacco Use Disorder Heavy chronic tobacco use; patient anxious due to smoking cessation. Plan: * Continue nicotine patch * Hydroxyzine 10 mg q6h PRN for cravings/anxiety * Counseling and reinforcement of cessation benefits # Leukocytosis ? resolving WBC downtrending; likely reactive. Plan: * Continue trending with CBC # Thrombocytosis Platelets elevated (635), likely reactive; elevated last month as well. Plan: * Monitor CBC # Normocytic Anemia Stable chronic anemia; Hgb 10.8 Plan: * Monitor H/H * Iron studies already reviewed * Outpatient follow-up with PCP Health Maintenance: * Disposition: Transfer in progress for ERCP * Feeding: Regular diet * VTE prophylaxis: Heparin drip for therapeutic anticoagulation * GI prophylaxis: Not indicated * Code Status: Full ----- Plan discussed with attending physician Dr. Amy Gibbons MD PGY-1 Internal Medicine Attending Provider Attestation/Addendum I attest that I was physically present for the evaluation, physical examination, lab and imaging review of the patient with the residents. I discussed the case with the residents and agree with the findings and plans of care as documented above. At bedside today, patient is states he is feeling better and denies any new complaints. Continues to saturate well on 1 to 2 L of nasal cannula. Denied any abdominal pain, fever, nausea or vomiting. Tolerating diet well. Family on phone updated about his condition and further management plans in detail. Patient underwent abdominal MRI and MRCP yesterday, was found to have choledocholithiasis with 10 mm impacted stone in distal CBD with prominent extrahepatic biliary tract dilation. Also has 4 cm liver mass but benign- appearing and calcified. Tumor markers including AFP, CA 19 9 and CEA are pending. Discussed with GI regarding choledocholithiasis, stated that he will not be available next week in-house and recommended to transfer the patient to a higher center for ERCP. Discussed with the transfer nurse and started the transfer process. Inez Reyes MD
[2024-12-31] MEDS: cefTRIAXone/D5w 1gm IV premix 1 GM/50 ML BAG IV (09:32)
[2024-12-31] MEDS: APIXABAN 2.5 MG TABLET 10 MG PO (09:32)
[2024-12-31] MEDS: AZITHROMYCIN INJ 500 MG in SODIUM CHLORIDE 0.9% 250 ML 250 ML 250 MG IV (10:14)
[2024-12-31 11:40] LABS: Cocci Serology, IgM Negative (Negative)
[2024-12-31] MEDS: Magnesium Sulfate 4 GM Ivpb 4 GM/50 ML BAG IV (12:36)
--- NOTE | 2024-12-31 14:46 | ESDS_ITS ---
Planned Discharge Date 12/31/24 DS: Providers Provider Date of admission: 12/31/24 08:40 Primary care physician: Luis Alberto Conley PA-C Admitting Provider: Oscar Ledezma DO Attending Provider on Admission: Oscar Ledezma DO Consults: 12/30/24 05:02 Referral Smoking Cessation Counseling Routine Comment: Smoking Cessation Education Needed 12/30/24 10:32 Referral Physical Therapy Routine Comment: Physician Instructions: 12/31/24 10:43 Consult to Gastroenterology Routine Comment: Stone in CBD Consulting Provider: Yoa Prajapati Attending Provider on DC: Dr. Reyes Discharging Provider: RESIDENT Sanaz DS: Diagnosis Problem List Completed Was Problem List Reviewed/Reconciled?: Yes Hospital Course Hospital Course Hospital course: Mr. Coronel is a 69-year-old male with a history of COPD and heavy tobacco use who presented with 3 days of progressive swelling and pain in the left upper extremity. Venous Doppler confirmed an acute DVT in the left subclavian vein. Concurrently, he reported increased sputum production and mild shortness of breath, and imaging showed multifocal pneumonia in the left upper and right lower lobes, with underlying bronchiectasis. He was started on ceftriaxone and azithromycin with gradual clinical improvement. During imaging workup, a 10 mm impacted stone in the distal common bile duct with marked biliary dilation was discovered on MRCP, concerning for choledocholithiasis. Liver ultrasound and MRI abdomen further confirmed biliary dilation, cholelithiasis, and a 4 cm benign-appearing, calcified liver lesion. LFTs remained within normal limits, and the patient remained asymptomatic from a GI standpoint. Due to the need for ERCP and the unavailability of GI services at our facility, the GI team recommended transfer. Consent was obtained from the patient?s daughter, and apixaban was held in favor of a heparin drip for procedural safety. The patient remained hemodynamically stable throughout hospitalization, tolerated diet, and did not develop signs of cholangitis or decompensation. Diagnosis during admission #Choledocholithiasis #Left Upper Extremity DVT ? Subclavian thrombus #Community-Acquired Pneumonia #Benign Hepatic Mass ? Calcified lesion #Tobacco Use Disorder ? Active smoker #Leukocytosis ? resolving #Thrombocytosis ? reactive #Normocytic Anemia ? Chronic anemia Active Issues at Transfer: * Choledocholithiasis: 10 mm impacted stone in distal CBD with marked biliary dilation seen on MRCP. Currently asymptomatic (no pain, jaundice, or fever). Requires ERCP; transferring due to unavailability of GI at current facility. * Left Upper Extremity DVT: Acute thrombus in left subclavian vein confirmed on Doppler. Anticoagulation transitioned from apixaban to heparin drip in preparation for procedure. * Community-Acquired Pneumonia: Multifocal infiltrates (CISCO, RLL) with chronic bronchiectasis. Improving on IV ceftriaxone and azithromycin. * Benign Hepatic Lesion: 4 cm calcified, non-enhancing liver mass on MRI; likely benign. No intervention needed at this time. * Tobacco Use Disorder: Heavy chronic smoker; currently using nicotine patch with supportive therapy. * Leukocytosis (resolving): Initially elevated WBC, now downtrending with clinical improvement. * Thrombocytosis: Persistent, likely reactive. Platelets 635 on admission; currently 647. * Normocytic Anemia: Stable; no signs of bleeding. Iron studies already reviewed. Time Spent with Patient Time attestation: Total time spent providing and/or coordinating discharge services: 38 Time spent: Greater than 30 minutes Exam Vital Signs Temp Pulse Resp BP Pulse Ox O2 Del Method O2 Flow Rate 97.4 F 88 18 100/58 L 94 L Room Air 1 12/31/24 12:12/31/24 12:12/31/24 12:12/31/24 12:12/31/24 12:12/31/24 12:12/30/24 08:41 Narrative Exam General: No acute distress, well nourished, sitting Eye: PERRL, EOMI, normal conjunctiva, no scleral icterus HENT: Normocephalic, atraumatic, clear tympanic membranes, normal hearing, moist oral mucosa, no sinus tenderness Neck: Supple, non-tender, no carotid bruits, no JVD, no lymphadenopathy Lungs: Non-labored respirations, symmetric chest rise, +wheezing in bilateral lower lung tellez, crackles in left mid lung tellez, no crackles appreciated on right lung base Heart: Normal S1 and S2, no S3 or S4 appreciated. Normal rate and regular rhythm, no murmurs, rubs gallops, or edema. Peripheral pulses intact bilaterally, capillary refill brisk distally Abdomen: Soft, non-tender, non-distended, normal bowel sounds, no masses Musculoskeletal: Normal range of motion. Left upper extremity with edema from shoulder to wrist. Elevated with pillows underneath in bed Skin: Edema, erythema, mild pain upon palpation in the left upper extremity to shoulder,. Right upper extremity without abnormalities. Neurologic: Alert, awake and oriented x3. Cranial nerves: II through XII grossly intact. Sensation intact in the bilateral upper extremities. Unable to test motor function as exam limited due to pain. Psychiatric: Cooperative, appropriate mood and affect Discharge Plan Prescriptions/Referrals Prescriptions/Med Rec: No Action albuterol sulfate 90 mcg/actuation HFA aerosol inhaler 2 puff INHALATION DAILY Referrals: Luis Alberto Conley PA-C [Primary Care Provider] - Patient/Caregiver Discharge Instructions Print Language: Gibralt[place] Quality Discharge Quality Measures VTE prophylaxis and VTE therapy MD Attestestation MD Attestation I attest that I was physically present for the evaluation, physical examination, lab and imaging review of the patient with the residents. I discussed the case with the residents and agree with the findings and plans of care as documented above. Inez Reyes MD
--- NOTE | 2024-12-31 15:09 | PC.SS ---
Rounding note: Requires ERCP; transferring HLOC due to unavailability of GI.
[2024-12-31 15:26] LABS: INR 1.1 (0.9-1.3); Partial Thromboplastin Time 38.2 Seconds (22.0-36.0); Prothrombin Time 11.7 Seconds (9.0-12.2)
--- NOTE | 2024-12-31 16:09 | PC.CC ---
Addendum entered by Divian Macias RN 12/31/24 16:40: 1639 called [facility], spoke to Sparkle and initiated the transfer. Selwynlizzie stated she would need auth before presenting the case. Addendum entered by Divina Macias RN 12/31/24 16:38: 1636 received call from Neptali at [facility] and initiated the transfer. Neptali stated she would need auth before presenting the case. Addendum entered by Divina Macias RN 12/31/24 16:20: 1619 clinicals sent to [facility] and [facility]. Original Note: [address] Dinh, pt needs to be transferred for 10mm impacted stone in distal CBD need ERCP.
[2024-12-31] MEDS: Heparin/D5w 25K 250 ML Ivpb 25,000 UNIT/250 ML BAG 10.655 UNIT IV (16:36)
[2024-12-31] MEDS: HEPARIN SOD INJ 5000 UNIT/ML VIAL 2350 UNIT IV (16:42)
--- NOTE | 2024-12-31 19:38 | PC.NURSE ---
clarified order with Dr. Piper regarding heparin order, per MD to continue heparin infusion and continue heparin protocol.
[2024-12-31 19:53] LABS: AFP Non-Pregnant 3.60 ng/mL (<8.10); Carcinoembryonic Antigen < 0.5 ng/mL (0.0-5.0)
[2024-12-31 23:09] LABS: Partial Thromboplastin Time 37.5 Seconds (22.0-36.0)
[2024-12-31] MEDS: HEPARIN SOD INJ 5000 UNIT/ML VIAL 2370 UNIT IVP (23:39)
[2025-01-01] VITALS (11 sets, daily range): BP systolic 92–119; BP diastolic 51–69; PULSE 63–108; RESP 18–77; TEMP 36.2–37.4; O2SAT 92–99; BMI 24.6
[2025-01-01 06:32] LABS: Basophils # (Auto) 0.2 Thou/mm3 (0.0-0.2); Basophils % (Auto) 1 % (0-2.5); Eosinophils # (Auto) 1.6 Thou/mm3 (0.0-0.5); Eosinophils % (Auto) 11 % (0-10); Hematocrit 29.7 % (41.0-53.0); Hemoglobin 9.7 g/dL (13.5-16.0); Immature Granulocytes Auto 0.12 Thou/mm3 (0.00-0.00); Lymphocytes # (Auto) 1.8 Thou/mm3 (1.0-4.8); Lymphocytes % (Auto) 12 % (10-50); Mean Corpuscular HGB Conc 32.7 g/dl (31.0-37.0); Mean Corpuscular Hemoglobin 30.5 pg (25.0-35.0); Mean Corpuscular Volume 93 fL (80-100); Monocytes # (Auto) 0.9 Thou/mm3 (0.0-0.8); Monocytes % (Auto) 6 % (0-12); Neutrophils # (Auto) 9.7 Thou/mm3 (1.8-7.7); Neutrophils % (Auto) 68 % (37-80); Nucleated Red Blood Cell # 0.00 Thou/mm3 (0.00-0.00); Nucleated Red Blood Cell % 0 /100 WBC (0); Partial Thromboplastin Time 43.7 Seconds (22.0-36.0); Platelet Count 693 Thou/mm3 (140-440); RDW Standard Deviation 50.0 fL (35.1-43.9); Red Blood Count 3.18 Miln/mm3 (4.50-5.90); White Blood Count 14.2 Thou/mm3 (3.8-10.6)
[2025-01-01 06:54] LABS: Alanine Aminotransferase 44 U/L (10-49); Albumin, Serum 3.5 gm/dL (3.4-4.8); Albumin/Globulin Ratio 1.1 (1.2-2.2); Alkaline Phosphatase 231 U/L (46-116); Anion Gap 7 (7-16); Aspartate Amino Transferase 66 U/L (0-34); BUN/Creatinine Ratio 16 Ratio (12-20); Bilirubin,Total 0.2 mg/dL (0.3-1.2); Blood Urea Nitrogen 11 mg/dL (9-23); Calcium 8.2 mg/dL (8.3-10.6); Calcium (Corrected) 8.6 mg/dL (8.5-10.1); Carbon Dioxide 30.8 mMol/L (20.0-31.0); Chloride 97 mMol/L (98-107); Creatinine (Component) 0.7 mg/dL (0.6-1.3); Estimated Creatinine Clearance 73.7 mL/min (>60); Globulin 3.3 gm/dL (2.3-3.5); Glucose 101 mg/dL (74-106); Magnesium 2.0 mg/dL (1.6-2.6); Osmolality,Calculated 269 (275-295); Phosphorous 3.4 mg/dL (2.4-5.1); Potassium 4.5 mMol/L (3.4-5.1); Sodium 135 mMol/L (136-145); Total Protein 6.8 gm/dL (5.7-8.2); eGFR > 60 See Note
[2025-01-01] MEDS: HEPARIN SOD INJ 5000 UNIT/ML VIAL 2370 UNIT IVP (06:56)
--- NOTE | 2025-01-01 07:28 | PD.RESPRO ---
Documentation for date of: 01/01/25 Exam Vital Signs Temp Pulse Resp BP Pulse Ox O2 Del Method O2 Flow Rate 98.9 F 80 22 H 119/69 92 L Nasal Cannula 3 01/01/25 04:00 01/01/25 06:54 01/01/25 06:54 01/01/25 04:00 01/01/25 06:54 01/01/25 04:00 01/01/25 06:54 Objective Labs 01/01/25 05:55 01/01/25 05:55 Labs: Laboratory Results - last 24 hr 12/29/24 12/30/24 12/31/24 19:26 16:17 04:52 WBC RBC Hgb Hct MCV MCH MCHC RDW Std Deviation Plt Count Neut % (Auto) Lymph % (Auto) Evangeline % (Auto) Eos % (Auto) Baso % (Auto) Neut # (Auto) Lymph # (Auto) Evangeline # (Auto) Eos # (Auto) Baso # (Auto) Immature Gran # (Auto) Absolute Nucleated RBC Immature Gran % Nucleated RBC % PT INR APTT Sodium Potassium Chloride Carbon Dioxide Anion Gap BUN Creatinine Estim Creat Clear Calc eGFR BUN/Creatinine Ratio Glucose Calculated Osmolality Calcium Corrected Calcium Phosphorus 3.7 Magnesium 1.5 L Total Bilirubin AST ALT Alkaline Phosphatase Total Protein Albumin Globulin Albumin/Globulin Ratio Tumor Marker AFP 3.60 Carcinoembryonic Ag < 0.5 Coccidioides IgM Ab Negative 12/31/24 12/31/24 01/01/25 15:02 22:40 05:55 WBC 14.2 H RBC 3.18 L Hgb 9.7 L Hct 29.7 L MCV 93 MCH 30.5 MCHC 32.7 RDW Std Deviation 50.0 H Plt Count 693 H D Neut % (Auto) 68 Lymph % (Auto) 12 Evangeline % (Auto) 6 Eos % (Auto) 11 H Baso % (Auto) 1 Neut # (Auto) 9.7 H Lymph # (Auto) 1.8 Evangeline # (Auto) 0.9 H Eos # (Auto) 1.6 H Baso # (Auto) 0.2 Immature Gran # (Auto) 0.12 H Absolute Nucleated RBC 0.00 Immature Gran % 1 H Nucleated RBC % 0 PT 11.7 INR 1.1 APTT 38.2 H 37.5 H 43.7 H Sodium 135 L Potassium 4.5 Chloride 97 L Carbon Dioxide 30.8 Anion Gap 7 BUN 11 Creatinine 0.7 Estim Creat Clear Calc 73.7 eGFR > 60 BUN/Creatinine Ratio 16 Glucose 101 Calculated Osmolality 269 L Calcium 8.2 L Corrected Calcium 8.6 Phosphorus 3.4 Magnesium 2.0 Total Bilirubin 0.2 L AST 66 H ALT 44 Alkaline Phosphatase 231 H D Total Protein 6.8 Albumin 3.5 Globulin 3.3 Albumin/Globulin Ratio 1.1 L Tumor Marker AFP Carcinoembryonic Ag Coccidioides IgM Ab Quality Measures Quality Measures VTE prophylaxis and VTE therapy Assessment & Plan Assessment Current Active Medications: Generic Name Dose Route Start Last Admin Trade Name Freq PRN Reason Stop Dose Admin Acetaminophen 650 mg 12/30/24 01:54 Acetaminophen 325 Mg Tablet PO 01/29/25 01:53 Q6H PRN Fever >100.3 or pain Albuterol/Ipratropium 3 ml 12/30/24 01:54 Albuterol/Ipratropium (Duoneb) Rt Tiera 3 Ml Nebu INH 01/29/25 01:53 Q4HRRT PRN sob or wheezing Hydroxyzine HCl 10 mg 12/30/24 18:27 Hydroxyzine Hcl 10 Mg Tablet PO 01/29/25 18:26 Q6HR PRN aNxiety with smokng Ceftriaxone Sodium/Dextrose 1 gm in 50 mls @ 100 mls/hr 12/30/24 01:52 12/31/24 09:32 Rocephin/D5w 1gm Iv Premix IV 01/06/25 01:51 100 mls/hr QDAY ROEGR Administration Azithromycin 500 mg/ Sodium 250 mls @ 250 mls/hr 12/31/24 09:00 12/31/24 10:14 Chloride IV 01/06/25 01:58 250 mls/hr QDAY ROGER Administration Heparin Sodium/Dextrose 25,000 unit in 250 mls @ 10.655 mls/hr 12/31/24 14:30 01/01/25 06:58 Heparin In D5w Ivpb IV 01/14/25 14:29 22 units/kg/hr .[id number] ROGER 13.023 mls/hr Titration Protocol 18 UNITS/KG/HR Ondansetron HCl 4 mg 12/30/24 01:54 Ondansetron Inj 2 Mg/Ml Inj 2 Ml IVP 01/29/25 01:53 Q6H PRN NAUSEA OR VOMITING Protocol Sennosides 1 tab 12/30/24 01:54 Senna Tablet PO 01/29/25 01:53 QDAY PRN constipation Protocol
--- NOTE | 2025-01-01 08:29 | PC.CC ---
Addendum entered by Chris Colin RN 01/01/25 11:41: 1140 Clinicals sent to Amalia at [facility]. Addendum entered by Chris Colin RN 01/01/25 11:29: 1120 [facility] for [facility] returned call. Request for clinicals via fax [phone] Addendum entered by Chris Colin RN 01/01/25 09:22: 0915 Contacted [facility] and spoke Neptali at . Information received in order to get auth, , Tax ID [id number]. Accepting Dr. Yanira Urban, . [facility] [address] [facility], [address]. Addendum entered by Chris Colin RN 01/01/25 09:14: 0910 Contacted [facility] and left message for Amalia, Head [email or web address]@ [phone] for auth. Original Note: Left message for Katie Gupta, quality assurance representative at [facility] for authorization for transfer.
[2025-01-01] MEDS: cefTRIAXone/D5w 1gm IV premix 1 GM/50 ML BAG IV (08:40)
[2025-01-01] MEDS: AZITHROMYCIN INJ 500 MG in SODIUM CHLORIDE 0.9% 250 ML 250 ML 250 MG IV (09:19)
[2025-01-01] MEDS: SODIUM CHLORIDE 0.9% 1000 ML 1,000 ML 75 ML IV (11:50)
[2025-01-01 13:18] LABS: Cocci Serology, IgG Negative (Negative)
[2025-01-01 13:24] LABS: Partial Thromboplastin Time 30.8 Seconds (22.0-36.0)
[2025-01-01] MEDS: HEPARIN SOD INJ 5000 UNIT/ML VIAL 4750 UNIT IV (14:08)
[2025-01-01] MEDS: Heparin/D5w 25K 250 ML Ivpb 25,000 UNIT/250 ML BAG 14.207 UNIT IV (14:13)
--- NOTE | 2025-01-01 15:18 | PC.SS ---
Albin Coronel is a 69-year-old male admitted to [facility] for CBD Stone. SS conducted bedside contact with the patient to complete initial assessment and to discuss discharge planning. Role and reason explained. Patient confirmed demographic information. Patient identifies his dtr Rebekah Coronel [phone] as his surrogate decision maker. Pt states he is able to complete all ADL?s independent. Pt does not possesses any DME. Pts PCP is Leandra. Pharmacy of choice is [facility]. Discharge options discussed and the pt wishes to return home, pt currently pending HLOC for ERCP. No further intervention required at this time, health social work professor would be available to address any further concerns. DC Plan: Home (HLOC) Contact: Rebekah Gerard Address: Confirmed on face sheet PCP: Leandra
--- NOTE | 2025-01-01 17:54 | ESPR_ITS ---
<Statement entered by Mick Dinh MD - 01/01/25 18:05> Patient was seen and examined at the bedside. No acute overnight events were reported. Patient is currently waiting on transfer for ERCP. Patient's daughter was notified that we will keep her updated once insurance authorization is completed. Dietitian was consulted due to patient's poor appetite and feeling of fullness after eating as patient has been having decreased p.o. intake. Labs and vitals were stable. Continuing on Rocephin and azithromycin for now. Continuing heparin drip for upper arm DVT. Anticipating transfer tomorrow. All labs and orders were reviewed. I discussed and supervised with the industrial design intern physician who took care of this patient. I personally saw and examined the patient. I agree with most of the assessment and plan. Disclaimer: Despite multiple revisions, due to the dictation software being used, the document bellow may not be free of grammatical errors including phonetic/typographic errors. However, this does not deter from our commitment to providing health care in the patient's best interest in mind. Plan of care discussed with attending Physician Dr. Amy Dinh MD PGY-3 Documentation for date of: 01/01/25 Subjective Subjective Interval history: Patient and daughter seen and examined at bedside. Reports no new symptoms and continues to feel well overall. Left arm remains swollen with mild pain, unchanged from prior. Denies fever, chills, chest pain, abdominal pain, nausea, or vomiting. States he is aware of the plan for transfer but has not yet left the facility. Continues to tolerate diet and is resting comfortably. Awaiting patient transfer due to insurance Exam Vital Signs Temp Pulse Resp BP Pulse Ox O2 Del Method O2 Flow Rate 98.9 F 87 24 H 109/66 99 Nasal Cannula 3 01/01/25 12:01/01/25 12:01/01/25 12:01/01/25 12:00 01/01/25 12:01/01/25 12:01/01/25 12:00 Narrative Exam General: No acute distress, well nourished, sitting Eye: PERRL, EOMI, normal conjunctiva, no scleral icterus HENT: Normocephalic, atraumatic, clear tympanic membranes, normal hearing, moist oral mucosa, no sinus tenderness Neck: Supple, non-tender, no carotid bruits, no JVD, no lymphadenopathy Lungs: Non-labored respirations, symmetric chest rise, +wheezing in bilateral lower lung tellez, crackles in left mid lung tellez, no crackles appreciated on right lung base Heart: Normal S1 and S2, no S3 or S4 appreciated. Normal rate and regular rhythm, no murmurs, rubs gallops, or edema. Peripheral pulses intact bilaterally, capillary refill brisk distally Abdomen: Soft, non-tender, non-distended, normal bowel sounds, no masses Musculoskeletal: Normal range of motion. Left upper extremity with edema from shoulder to wrist. Elevated with pillows underneath in bed Skin: Edema, erythema, mild pain upon palpation in the left upper extremity to shoulder,. Right upper extremity without abnormalities. Neurologic: Alert, awake and oriented x3. Cranial nerves: II through XII grossly intact. Sensation intact in the bilateral upper extremities. Unable to test motor function as exam limited due to pain. Psychiatric: Cooperative, appropriate mood and affect Objective Labs 01/03/25 05:54 01/03/25 05:54 Labs: Laboratory Results - last 24 hr 12/29/24 12/30/24 12/31/24 19:26 16:17 22:40 WBC RBC Hgb Hct MCV MCH MCHC RDW Std Deviation Plt Count Neut % (Auto) Lymph % (Auto) [place] % (Auto) Eos % (Auto) Baso % (Auto) Neut # (Auto) Lymph # (Auto) [place] # (Auto) Eos # (Auto) Baso # (Auto) Immature Gran # (Auto) Absolute Nucleated RBC Immature Gran % Nucleated RBC % APTT 37.5 H Sodium Potassium Chloride Carbon Dioxide Anion Gap BUN Creatinine Estim Creat Clear Calc eGFR BUN/Creatinine Ratio Glucose Calculated Osmolality Calcium Corrected Calcium Phosphorus Magnesium Total Bilirubin AST ALT Alkaline Phosphatase Total Protein Albumin Globulin Albumin/Globulin Ratio Tumor Marker AFP 3.60 Carcinoembryonic Ag < 0.5 Coccidioides IgG Ab Negative 01/01/25 01/01/25 05:55 12:29 WBC 14.2 H RBC 3.18 L Hgb 9.7 L Hct 29.7 L MCV 93 MCH 30.5 MCHC 32.7 RDW Std Deviation 50.0 H Plt Count 693 H D Neut % (Auto) 68 Lymph % (Auto) 12 [place] % (Auto) 6 Eos % (Auto) 11 H Baso % (Auto) 1 Neut # (Auto) 9.7 H Lymph # (Auto) 1.8 [place] # (Auto) 0.9 H Eos # (Auto) 1.6 H Baso # (Auto) 0.2 Immature Gran # (Auto) 0.12 H Absolute Nucleated RBC 0.00 Immature Gran % 1 H Nucleated RBC % 0 APTT 43.7 H 30.8 D Sodium 135 L Potassium 4.5 Chloride 97 L Carbon Dioxide 30.8 Anion Gap 7 BUN 11 Creatinine 0.7 Estim Creat Clear Calc 73.7 eGFR > 60 BUN/Creatinine Ratio 16 Glucose 101 Calculated Osmolality 269 L Calcium 8.2 L Corrected Calcium 8.6 Phosphorus 3.4 Magnesium 2.0 Total Bilirubin 0.2 L AST 66 H ALT 44 Alkaline Phosphatase 231 H D Total Protein 6.8 Albumin 3.5 Globulin 3.3 Albumin/Globulin Ratio 1.1 L Tumor Marker AFP Carcinoembryonic Ag Coccidioides IgG Ab Quality Measures Quality Measures VTE prophylaxis and VTE therapy Advance care planning discussed with:: patient and child Assessment & Plan Assessment Current Active Medications: Generic Name Dose Route Start Last Admin Trade Name Freq PRN Reason Stop Dose Admin Acetaminophen 650 mg 12/30/24 01:54 Acetaminophen 325 Mg Tablet PO 01/29/25 01:53 Q6H PRN Fever >100.3 or pain Albuterol/Ipratropium 3 ml 12/30/24 01:54 Albuterol/Ipratropium (Duoneb) Rt Tiera 3 Ml Nebu INH 01/29/25 01:53 Q4HRRT PRN sob or wheezing Hydroxyzine HCl 10 mg 12/30/24 18:27 Hydroxyzine Hcl 10 Mg Tablet PO 01/29/25 18:26 Q6HR PRN aNxiety with smokng Ceftriaxone Sodium/Dextrose 1 gm in 50 mls @ 100 mls/hr 12/30/24 01:52 01/01/25 08:40 Rocephin/D5w 1gm Iv Premix IV 01/06/25 01:51 100 mls/hr QDAY ROGER Administration Azithromycin 500 mg/ Sodium 250 mls @ 250 mls/hr 12/31/24 09:00 01/01/25 09:19 Chloride IV 01/06/25 01:58 250 mls/hr QDAY ROGER Administration Heparin Sodium/Dextrose 25,000 unit in 250 mls @ 10.655 mls/hr 12/31/24 14:30 01/01/25 14:13 Heparin In D5w Ivpb IV 01/14/25 14:29 24 units/kg/hr .[id number] ROGER 14.207 mls/hr Administration Protocol 18 UNITS/KG/HR Sodium Chloride 1,000 mls @ 75 mls/hr 01/01/25 10:26 01/01/25 11:50 Ns IV 01/31/25 10:25 75 mls/hr .[id number] ROGER Administration Ondansetron HCl 4 mg 12/30/24 01:54 Ondansetron Inj 2 Mg/Ml Inj 2 Ml IVP 01/29/25 01:53 Q6H PRN NAUSEA OR VOMITING Protocol Sennosides 1 tab 12/30/24 01:54 Senna Tablet PO 01/29/25 01:53 QDAY PRN constipation Protocol Plan Mr. Croonel is a 69-year-old male with a history of COPD and tobacco use, admitted with left upper extremity DVT and multifocal pneumonia. During workup, he was found to have a 10 mm impacted stone in the distal common bile duct with marked biliary dilation. Although currently asymptomatic from a GI standpoint (no abdominal pain, jaundice, or fever), he is at risk for developing cholangitis or further complications. Given that our GI specialist is unavailable, we obtained consent from the patient?s daughter to proceed with ERCP and have initiated the transfer process to a facility that can perform the procedure. Apixaban was held, and he has been transitioned to a heparin drip in preparation. His pneumonia is clinically improving, and his left arm swelling from the DVT remains stable with mild tenderness. He remains hemodynamically stable and tolerating diet well. Awaiting transfer, currently pending insurance clearance. # Choledocholithiasis 10 mm impacted stone in distal common bile duct seen on MRCP, with prominent extrahepatic biliary tract dilation. Liver ultrasound confirmed cholelithiasis and enlarged CBD. No current signs of cholangitis (afebrile, no RUQ pain, LFTs normal). Plan: * Consent obtained from daughter for ERCP * Our GI (Dr. Sethi) unavailable --> transfer initiated to facility with ERCP capability * Apixaban held, started heparin drip in preparation for potential procedure * Monitor for signs of cholangitis or worsening obstruction * Continue to trend LFTs # Left Upper Extremity DVT Confirmed by venous Doppler in left subclavian vein; likely provoked (smoking, infection, possible thoracic outlet). Plan: * Apixaban stopped, transitioned to heparin drip due to ERCP planning * Elevate limb above heart * Monitor for progression, embolic symptoms * Outpatient hematology referral after discharge # Community-Acquired Pneumonia (CAP) Multifocal pneumonia on imaging ([facility], RLL); patient clinically improving with decreased sputum, afebrile. Plan: * Continue ceftriaxone 1g IV daily + azithromycin IV * Monitor WBC, respiratory exam * Cocci serology and sputum culture pending # Liver Mass (Incidental) 4 cm benign-appearing, calcified, non-enhancing lesion on MRI. Likely unrelated to biliary obstruction. Plan: * Tumor markers ordered (AFP, CA 19-9, CEA) ? pending * No acute intervention * Recommend outpatient hepatology follow-up after discharge # Tobacco Use Disorder Heavy chronic tobacco use; patient anxious due to smoking cessation. Plan: * Continue nicotine patch * Hydroxyzine 10 mg q6h PRN for cravings/anxiety * Counseling and reinforcement of cessation benefits # Leukocytosis ? resolving WBC downtrending; likely reactive. Plan: * Continue trending with CBC # Thrombocytosis Platelets elevated (635), likely reactive; elevated last month as well. Plan: * Monitor CBC # Normocytic Anemia Stable chronic anemia; Hgb 10.8 Plan: * Monitor H/H * Iron studies already reviewed * Outpatient follow-up with PCP Health Maintenance: * Disposition: Transfer in progress for ERCP, pending insurance clearance * Feeding: Regular diet * VTE prophylaxis: Heparin drip for therapeutic anticoagulation * GI prophylaxis: Not indicated * Code Status: Full ----- Plan discussed with attending physician Dr. Reyes and senior resident Dr. Fabrizio Gibbons MD PGY-1 Internal Medicine Attending Provider Attestation/Addendum I attest that I was physically present for the evaluation, physical examination, lab and imaging review of the patient with the residents. I discussed the case with the residents and agree with the findings and plans of care as documented above. Inez Reyes MD
--- NOTE | 2025-01-01 20:23 | PC.NURSE ---
Contacted lab phlebo up right now to draw PTT
[2025-01-01 21:21] LABS: Partial Thromboplastin Time 57.7 Seconds (22.0-36.0)
--- NOTE | 2025-01-01 22:12 | PC.NURSE ---
Pt ptt at 57.7 no bolus needed maintain current rate of 24units/kg/hour, next ptt ordered for AM per protocol pt has been on heparin infusion for over 24 hours.
[2025-01-02] VITALS (11 sets, daily range): BP systolic 106–123; BP diastolic 55–69; PULSE 75–105; RESP 16–26; TEMP 36.1–37.6; O2SAT 92–99
[2025-01-02] MEDS: SODIUM CHLORIDE 0.9% 1000 ML 1,000 ML 75 ML IV ×2 (01:12→17:03)
[2025-01-02 06:03] LABS: Basophils # (Auto) 0.2 Thou/mm3 (0.0-0.2); Basophils % (Auto) 1 % (0-2.5); Eosinophils # (Auto) 1.3 Thou/mm3 (0.0-0.5); Eosinophils % (Auto) 10 % (0-10); Hematocrit 29.5 % (41.0-53.0); Hemoglobin 9.2 g/dL (13.5-16.0); Immature Granulocytes Auto 0.14 Thou/mm3 (0.00-0.00); Lymphocytes # (Auto) 1.9 Thou/mm3 (1.0-4.8); Lymphocytes % (Auto) 15 % (10-50); Mean Corpuscular HGB Conc 31.2 g/dl (31.0-37.0); Mean Corpuscular Hemoglobin 30.3 pg (25.0-35.0); Mean Corpuscular Volume 97 fL (80-100); Monocytes # (Auto) 0.8 Thou/mm3 (0.0-0.8); Monocytes % (Auto) 6 % (0-12); Neutrophils # (Auto) 8.4 Thou/mm3 (1.8-7.7); Neutrophils % (Auto) 67 % (37-80); Nucleated Red Blood Cell # 0.00 Thou/mm3 (0.00-0.00); Nucleated Red Blood Cell % 0 /100 WBC (0); Platelet Count 673 Thou/mm3 (140-440); RDW Standard Deviation 51.8 fL (35.1-43.9); Red Blood Count 3.04 Miln/mm3 (4.50-5.90); White Blood Count 12.6 Thou/mm3 (3.8-10.6)
[2025-01-02 06:28] LABS: Alanine Aminotransferase 185 U/L (10-49); Albumin, Serum 3.3 gm/dL (3.4-4.8); Albumin/Globulin Ratio 1.0 (1.2-2.2); Alkaline Phosphatase 340 U/L (46-116); Anion Gap 7 (7-16); Aspartate Amino Transferase 492 U/L (0-34); BUN/Creatinine Ratio 16 Ratio (12-20); Bilirubin,Total 0.2 mg/dL (0.3-1.2); Blood Urea Nitrogen 11 mg/dL (9-23); Calcium 8.2 mg/dL (8.3-10.6); Calcium (Corrected) 8.8 mg/dL (8.5-10.1); Carbon Dioxide 29.8 mMol/L (20.0-31.0); Chloride 98 mMol/L (98-107); Creatinine (Component) 0.7 mg/dL (0.6-1.3); Estimated Creatinine Clearance 73.7 mL/min (>60); Globulin 3.3 gm/dL (2.3-3.5); Glucose 106 mg/dL (74-106); Magnesium 1.8 mg/dL (1.6-2.6); Osmolality,Calculated 269 (275-295); Phosphorous 3.3 mg/dL (2.4-5.1); Potassium 4.5 mMol/L (3.4-5.1); Sodium 135 mMol/L (136-145); Total Protein 6.6 gm/dL (5.7-8.2); eGFR > 60 See Note
--- NOTE | 2025-01-02 08:44 | PC.CC ---
Addendum entered by Edmar Bolden RN 01/02/25 15:12: spoke to patient, he as agreeable to transfer. Transfer packet w/ x1 CD taken to med surg floor - packet will need updated dc summary, 72 hour biomedical photographer, and transport arrangement if after hours. Addendum entered by Edmar Bolden RN 01/02/25 13:51: 1346: returned call from pt's Daughter Rebekah Coronel (on facesheet), status updated provided. Pt accepted, bed availability pending. Addendum entered by Edmar Bolden RN 01/02/25 13:49: 1329: received call from Neptali, Dr Arroyo will accept patient. Admitting will be Dr. Carr. Informed Dr. Reyes of acceptance. Transfer packet w/1 CD created. Addendum entered by Edmar Bolden RN 01/02/25 13:01: 1249: spoke to Neptali w/ [facility], she stated she is still waiting for the MD to review. Addendum entered by Edmar Bolden RN 01/02/25 10:52: 1011: called Neptali back with ins auth. Neptali requested updated clinicals to present case. Updated clinicals sent over to [facility]. Neptali will call me back with determination. 1010: called Katie back to confirm fax number. I provided the correct fax number for [facility]. Ins auth is [id number] 1008: called [facility], spoke to Neptali. She stated she has not received the ins auth. 0957: received call from Katie, she stated approved auth sent to [facility]. Requested she fax a copy to us as well. Addendum entered by Edmar Bolden RN 01/02/25 09:00: 0859: called Katie Gupta who is the nurse that covers our hospital, left a message for her to return my call Original Note: 0844: Called [facility] and left message for Amalia Industrial Psychologist@ [phone] for follow up on auth status
[2025-01-02 08:51] LABS: INR 1.0 (0.9-1.3); Partial Thromboplastin Time 50.0 Seconds (22.0-36.0); Prothrombin Time 11.1 Seconds (9.0-12.2)
[2025-01-02] MEDS: AZITHROMYCIN INJ 500 MG in SODIUM CHLORIDE 0.9% 250 ML 250 ML 250 MG IV (09:19)
[2025-01-02] MEDS: Heparin/D5w 25K 250 ML Ivpb 25,000 UNIT/250 ML BAG 14.207 UNIT IV (09:21)
[2025-01-02] MEDS: cefTRIAXone/D5w 1gm IV premix 1 GM/50 ML BAG IV (09:21)
--- NOTE | 2025-01-02 19:17 | ESPR_ITS ---
<Statement entered by Mick Dinh MD - 01/03/25 07:39> I discussed and supervised with the internet marketing strategist physician who took care of this patient. I personally saw and examined the patient. I agree with most of the assessment and plan. Disclaimer: Despite multiple revisions, due to the dictation software being used, the document bellow may not be free of grammatical errors including phonetic/typographic errors. However, this does not deter from our commitment to providing health care in the patient's best interest in mind. Plan of care discussed with attending Physician Dr. Amy Dinh MD PGY-3 Documentation for date of: 01/02/25 Subjective Subjective Interval history: Patient and daughter seen and examined at bedside. Reports no new symptoms and continues to feel well overall. Left arm remains swollen with mild pain, unchanged from prior. Denies fever, chills, chest pain, abdominal pain, nausea, or vomiting. States he is aware of the plan for transfer but has not yet left the facility. Continues to tolerate diet and is resting comfortably. Awaiting patient transfer Exam Vital Signs Temp Pulse Resp BP Pulse Ox O2 Del Method O2 Flow Rate 97.4 F 101 H 26 H 106/55 L 92 L Nasal Cannula 2 01/02/25 16:00 01/02/25 16:00 01/02/25 16:00 01/02/25 16:00 01/02/25 16:00 01/02/25 16:00 01/02/25 16:00 Narrative Exam Narrative Exam General: No acute distress, well nourished, sitting Eye: PERRL, EOMI, normal conjunctiva, no scleral icterus HENT: Normocephalic, atraumatic, clear tympanic membranes, normal hearing, moist oral mucosa, no sinus tenderness Neck: Supple, non-tender, no carotid bruits, no JVD, no lymphadenopathy Lungs: Non-labored respirations, symmetric chest rise, +wheezing in bilateral lower lung tellez, crackles in left mid lung tellez, no crackles appreciated on right lung base Heart: Normal S1 and S2, no S3 or S4 appreciated. Normal rate and regular rhythm, no murmurs, rubs gallops, or edema. Peripheral pulses intact bilaterally, capillary refill brisk distally Abdomen: Soft, non-tender, non-distended, normal bowel sounds, no masses Musculoskeletal: Normal range of motion. Left upper extremity with edema from shoulder to wrist. Elevated with pillows underneath in bed Skin: Edema, erythema, mild pain upon palpation in the left upper extremity to shoulder,. Right upper extremity without abnormalities. Neurologic: Alert, awake and oriented x3. Cranial nerves: II through XII grossly intact. Sensation intact in the bilateral upper extremities. Unable to test motor function as exam limited due to pain. Psychiatric: Cooperative, appropriate mood and affect Objective Labs 01/03/25 05:54 01/03/25 05:54 Labs: Laboratory Results - last 24 hr 01/01/25 01/02/25 20:28 04:39 WBC 12.6 H RBC 3.04 L Hgb 9.2 L Hct 29.5 L MCV 97 MCH 30.3 MCHC 31.2 RDW Std Deviation 51.8 H Plt Count 673 H Neut % (Auto) 67 Lymph % (Auto) 15 [place] % (Auto) 6 Eos % (Auto) 10 Baso % (Auto) 1 Neut # (Auto) 8.4 H Lymph # (Auto) 1.9 [place] # (Auto) 0.8 Eos # (Auto) 1.3 H Baso # (Auto) 0.2 Immature Gran # (Auto) 0.14 H Absolute Nucleated RBC 0.00 Immature Gran % 1 H Nucleated RBC % 0 PT 11.1 INR 1.0 APTT 57.7 H D 50.0 H Sodium 135 L Potassium 4.5 Chloride 98 Carbon Dioxide 29.8 Anion Gap 7 BUN 11 Creatinine 0.7 Estim Creat Clear Calc 73.7 eGFR > 60 BUN/Creatinine Ratio 16 Glucose 106 Calculated Osmolality 269 L Calcium 8.2 L Corrected Calcium 8.8 Phosphorus 3.3 Magnesium 1.8 Total Bilirubin 0.2 L AST 492 H ALT 185 H Alkaline Phosphatase 340 H D Total Protein 6.6 Albumin 3.3 L Globulin 3.3 Albumin/Globulin Ratio 1.0 L Quality Measures Quality Measures VTE prophylaxis and VTE therapy Advance care planning discussed with:: patient Assessment & Plan Assessment Current Active Medications: Generic Name Dose Route Start Last Admin Trade Name Freq PRN Reason Stop Dose Admin Acetaminophen 650 mg 12/30/24 01:54 Acetaminophen 325 Mg Tablet PO 01/29/25 01:53 Q6H PRN Fever >100.3 or pain Albuterol/Ipratropium 3 ml 12/30/24 01:54 Albuterol/Ipratropium (Duoneb) Rt Tiera 3 Ml Nebu INH 01/29/25 01:53 Q4HRRT PRN sob or wheezing Hydroxyzine HCl 10 mg 12/30/24 18:27 Hydroxyzine Hcl 10 Mg Tablet PO 01/29/25 18:26 Q6HR PRN aNxiety with smokng Ceftriaxone Sodium/Dextrose 1 gm in 50 mls @ 100 mls/hr 12/30/24 01:52 01/02/25 09:21 Rocephin/D5w 1gm Iv Premix IV 01/06/25 01:51 100 mls/hr QDAY ROGER Administration Azithromycin 500 mg/ Sodium 250 mls @ 250 mls/hr 12/31/24 09:00 01/02/25 09:19 Chloride IV 01/06/25 01:58 250 mls/hr QDAY ROGER Administration Heparin Sodium/Dextrose 25,000 unit in 250 mls @ 10.655 mls/hr 12/31/24 14:30 01/02/25 09:21 Heparin In D5w Ivpb IV 01/14/25 14:29 24 units/kg/hr .[id number] ROGER 14.207 mls/hr Administration Protocol 18 UNITS/KG/HR Sodium Chloride 1,000 mls @ 75 mls/hr 01/01/25 10:26 01/02/25 17:03 Ns IV 01/31/25 10:25 75 mls/hr .[id number] ROGER Administration Ondansetron HCl 4 mg 12/30/24 01:54 Ondansetron Inj 2 Mg/Ml Inj 2 Ml IVP 01/29/25 01:53 Q6H PRN NAUSEA OR VOMITING Protocol Sennosides 1 tab 12/30/24 01:54 Senna Tablet PO 01/29/25 01:53 QDAY PRN constipation Protocol Plan Mr. Coronel is a 69-year-old male with a history of COPD and tobacco use, admitted with left upper extremity DVT and multifocal pneumonia. During workup, he was found to have a 10 mm impacted stone in the distal common bile duct with marked biliary dilation. Although currently asymptomatic from a GI standpoint (no abdominal pain, jaundice, or fever), he is at risk for developing cholangitis or further complications. Given that our GI specialist is unavailable, we obtained consent from the patient?s daughter to proceed with ERCP and have initiated the transfer process to a facility that can perform the procedure. Apixaban was held, and he has been transitioned to a heparin drip in preparation. His pneumonia is clinically improving, and his left arm swelling from the DVT remains stable with mild tenderness. He remains hemodynamically stable and tolerating diet well. Awaiting transfer, insurance authorization complete # Choledocholithiasis 10 mm impacted stone in distal common bile duct seen on MRCP, with prominent extrahepatic biliary tract dilation. Liver ultrasound confirmed cholelithiasis and enlarged CBD. No current signs of cholangitis (afebrile, no RUQ pain, LFTs normal). Plan: * Consent obtained from daughter for ERCP * Our GI (Dr. Sethi) unavailable --> transfer initiated to facility with ERCP capability * Apixaban held, started heparin drip in preparation for potential procedure * Monitor for signs of cholangitis or worsening obstruction * Continue to trend LFTs # Left Upper Extremity DVT Confirmed by venous Doppler in left subclavian vein; likely provoked (smoking, infection, possible thoracic outlet). Plan: * Apixaban stopped, transitioned to heparin drip due to ERCP planning * Elevate limb above heart * Monitor for progression, embolic symptoms * Outpatient hematology referral after discharge # Community-Acquired Pneumonia (CAP) Multifocal pneumonia on imaging ([facility], RLL); patient clinically improving with decreased sputum, afebrile. Plan: * Continue ceftriaxone 1g IV daily + azithromycin IV * Monitor WBC, respiratory exam * Cocci serology and sputum culture pending # Liver Mass (Incidental) 4 cm benign-appearing, calcified, non-enhancing lesion on MRI. Likely unrelated to biliary obstruction. Plan: * Tumor markers ordered (AFP, CA 19-9, CEA) ? pending * No acute intervention * Recommend outpatient hepatology follow-up after discharge # Tobacco Use Disorder Heavy chronic tobacco use; patient anxious due to smoking cessation. Plan: * Continue nicotine patch * Hydroxyzine 10 mg q6h PRN for cravings/anxiety * Counseling and reinforcement of cessation benefits # Leukocytosis ? resolving WBC downtrending; likely reactive. Plan: * Continue trending with CBC # Thrombocytosis Platelets elevated (635), likely reactive; elevated last month as well. Plan: * Monitor CBC # Normocytic Anemia Stable chronic anemia; Hgb 10.8 Plan: * Monitor H/H * Iron studies already reviewed * Outpatient follow-up with PCP Health Maintenance: * Disposition: Transfer in progress for ERCP, insurance auth cleared pending transfer * Feeding: Regular diet * VTE prophylaxis: Heparin drip for therapeutic anticoagulation * GI prophylaxis: Not indicated * Code Status: Full ----- Plan discussed with attending physician Dr. Reyes and senior resident Dr. Fabrizio Gibbons MD PGY-1 Internal Medicine Attending Provider Attestation/Addendum I attest that I was physically present for the evaluation, physical examination, lab and imaging review of the patient with the residents. I discussed the case with the residents and agree with the findings and plans of care as documented above. Inez Reyes MD
[2025-01-03] VITALS: BP 140/75; PULSE 93; PULSE 98; RESP 19; TEMP 36.1; O2SAT 99
[2025-01-03 04:00] VITALS: BP 134/71; PULSE 96; RESP 20; TEMP 36.7; O2SAT 98
[2025-01-03] MEDS: SODIUM CHLORIDE 0.9% 1000 ML 1,000 ML 75 ML IV (05:50)
[2025-01-03 06:28] VITALS: PULSE 88
[2025-01-03 06:40] LABS: Basophils # (Auto) 0.1 Thou/mm3 (0.0-0.2); Basophils % (Auto) 1 % (0-2.5); Eosinophils # (Auto) 1.2 Thou/mm3 (0.0-0.5); Eosinophils % (Auto) 9 % (0-10); Hematocrit 28.3 % (41.0-53.0); Hemoglobin 9.2 g/dL (13.5-16.0); Immature Granulocytes Auto 0.20 Thou/mm3 (0.00-0.00); Lymphocytes # (Auto) 1.6 Thou/mm3 (1.0-4.8); Lymphocytes % (Auto) 12 % (10-50); Mean Corpuscular HGB Conc 32.5 g/dl (31.0-37.0); Mean Corpuscular Hemoglobin 30.6 pg (25.0-35.0); Mean Corpuscular Volume 94 fL (80-100); Monocytes # (Auto) 1.0 Thou/mm3 (0.0-0.8); Monocytes % (Auto) 7 % (0-12); Neutrophils # (Auto) 9.5 Thou/mm3 (1.8-7.7); Neutrophils % (Auto) 70 % (37-80); Nucleated Red Blood Cell # 0.00 Thou/mm3 (0.00-0.00); Nucleated Red Blood Cell % 0 /100 WBC (0); Platelet Count 655 Thou/mm3 (140-440); RDW Standard Deviation 50.0 fL (35.1-43.9); Red Blood Count 3.01 Miln/mm3 (4.50-5.90); White Blood Count 13.6 Thou/mm3 (3.8-10.6)
[2025-01-03 06:44] LABS: Partial Thromboplastin Time 45.8 Seconds (22.0-36.0)
[2025-01-03 07:05] LABS: Alanine Aminotransferase 181 U/L (10-49); Albumin, Serum 3.4 gm/dL (3.4-4.8); Albumin/Globulin Ratio 1.0 (1.2-2.2); Alkaline Phosphatase 351 U/L (46-116); Anion Gap 5 (7-16); Aspartate Amino Transferase 191 U/L (0-34); BUN/Creatinine Ratio 15 Ratio (12-20); Bilirubin,Total 0.3 mg/dL (0.3-1.2); Blood Urea Nitrogen 9 mg/dL (9-23); Calcium 8.2 mg/dL (8.3-10.6); Calcium (Corrected) 8.7 mg/dL (8.5-10.1); Carbon Dioxide 30.8 mMol/L (20.0-31.0); Chloride 98 mMol/L (98-107); Creatinine (Component) 0.6 mg/dL (0.6-1.3); Estimated Creatinine Clearance 86.0 mL/min (>60); Globulin 3.3 gm/dL (2.3-3.5); Glucose 94 mg/dL (74-106); Magnesium 1.6 mg/dL (1.6-2.6); Osmolality,Calculated 266 (275-295); Phosphorous 3.1 mg/dL (2.4-5.1); Potassium 4.4 mMol/L (3.4-5.1); Sodium 134 mMol/L (136-145); Total Protein 6.7 gm/dL (5.7-8.2); eGFR > 60 See Note
[2025-01-03 08:00] VITALS: BP 115/65; PULSE 80; PULSE 86; RESP 20; TEMP 36.9; O2SAT 96
--- NOTE | 2025-01-03 08:22 | PC.CC ---
Addendum entered by Edmar Bolden RN 01/03/25 10:02: 0955: spoke to Summer w/ [facility], she stated she left a message for the oncall GI but has not heard back as he maybe in clinic. Informed her of POC that patient will be transferred w/o hep gtt. group fitness manager time provided. Bedside nurse Sandra made aware of POC. encouraged her to clarify with Dr. Reyes. 0935: Dr. Huitron stated he has not received a call from Gi as of yet. He stated he will send patient without the hep gtt. 0913: Called [facility], informed Summer of the request. She stated she will put a call out to the oncall GI. Dr. Reyes contact info provided 0910: Dr. Reyes would like recs from receiving GI. Addendum entered by Edmar Bolden RN 01/03/25 09:03: 0900: spoke to Chacha, question hep gtt. informed her to clarify w/ . 0852: transportation set up for 11 am pickup. 0840: printed lasted doctors notes and 72hr medication list and included it in packet. Informed bedside nurse Sandra, report information given. Addendum entered by Edmar Bolden RN 01/03/25 08:33: Pt is going to room 3228 bed 3, bedside nurse to call report to [phone] Original Note: 2222: called [facility] to f/u on bed availability, per Summer bed was released last night at 2128. I asked who they spoke to about the bed, after researching, they did not contact us. setting up transport.
[2025-01-03] MEDS: AZITHROMYCIN INJ 500 MG in SODIUM CHLORIDE 0.9% 250 ML 250 ML 250 MG IV (09:14)
[2025-01-03] MEDS: cefTRIAXone/D5w 1gm IV premix 1 GM/50 ML BAG IV (09:14)
--- NOTE | 2025-01-03 10:10 | PC.NURSE ---
Report given to Clifford at [facility]. Patient to transfer to higher level of care.
[2025-01-03] MEDS: HEPARIN SOD INJ 5000 UNIT/ML VIAL 2350 UNIT IV (10:47)
[2025-01-03] MEDS: Heparin/D5w 25K 250 ML Ivpb 25,000 UNIT/250 ML BAG 15.39 UNIT IV (10:55)
--- NOTE | 2025-01-03 10:56 | ESDS_ITS ---
<Statement entered by Mick Dinh MD - 01/03/25 15:50> I discussed and supervised with the internal communications specialist physician who took care of this patient. I personally saw and examined the patient. I agree with most of the assessment and plan. Disclaimer: Despite multiple revisions, due to the dictation software being used, the document bellow may not be free of grammatical errors including phonetic/typographic errors. However, this does not deter from our commitment to providing health care in the patient's best interest in mind. Plan of care discussed with attending Physician Dr. Amy Dinh MD PGY-3 Planned Discharge Date 01/03/25 DS: Providers Provider Date of admission: 12/31/24 08:40 Primary care physician: Luis Alberto Conley PA-C Admitting Provider: Oscar Ledezma DO Attending Provider on Admission: Inez Reyes MD Consults: 12/30/24 05:02 Referral Smoking Cessation Counseling Routine Comment: Smoking Cessation Education Needed 12/30/24 10:32 Referral Physical Therapy Routine Comment: Physician Instructions: 12/31/24 10:43 Consult to Gastroenterology Routine Comment: Stone in CBD Consulting Provider: Yao Prajapati 01/01/25 10:27 Referral Registered Dietitian Routine Comment: decreased po intake Attending Provider on DC: Inez Reyes MD Discharging Provider: RESIDENT Sanaz DS: Diagnosis Problem List Completed Was Problem List Reviewed/Reconciled?: Yes Hospital Course Hospital Course Hospital course: Mr. Coronel is a 69-year-old male with a history of COPD and heavy tobacco use who presented with 3 days of progressive swelling and pain in the left upper extremity. Venous Doppler confirmed an acute DVT in the left subclavian vein. Concurrently, he reported increased sputum production and mild shortness of breath, and imaging showed multifocal pneumonia in the left upper and right lower lobes, with underlying bronchiectasis. He was started on ceftriaxone and azithromycin with gradual clinical improvement. During imaging workup, a 10 mm impacted stone in the distal common bile duct with marked biliary dilation was discovered on MRCP, concerning for choledocholithiasis. Liver ultrasound and MRI abdomen further confirmed biliary dilation, cholelithiasis, and a 4 cm benign-appearing, calcified liver lesion. LFTs remained within normal limits, and the patient remained asymptomatic from a GI standpoint. Due to the need for ERCP and the unavailability of GI services at our facility, the GI team recommended transfer. Consent was obtained from the patient?s daughter, and apixaban was held in favor of a heparin drip for procedural safety. The patient remained hemodynamically stable throughout hospitalization, tolerated diet, and did not develop signs of cholangitis or decompensation. Patient is being discharged today for transfer to an outside facility for ERCP. Transfer was initially delayed due to pending insurance authorization, followed by logistical delays yesterday despite approval. These issues have now been resolved, and the patient will be transferred today. Diagnosis during admission #Choledocholithiasis #Left Upper Extremity DVT ? Subclavian thrombus #Community-Acquired Pneumonia #Elevated Liver enzyme #Benign Hepatic Mass ? Calcified lesion #Tobacco Use Disorder ? Active smoker #Leukocytosis ? resolving #Thrombocytosis ? reactive #Normocytic Anemia ? Chronic anemia Discharge Plan: -Transfer Time Spent with Patient Time attestation: Total time spent providing and/or coordinating discharge services:40 min Time spent: Greater than 30 minutes Exam Vital Signs Temp Pulse Resp BP Pulse Ox O2 Del Method O2 Flow Rate 98.4 F 86 20 115/65 96 Nasal Cannula 2 01/03/25 08:00 01/03/25 08:00 01/03/25 08:00 01/03/25 08:00 01/03/25 08:00 01/03/25 08:00 01/03/25 08:00 Narrative Exam General: No acute distress, well nourished, sitting Eye: PERRL, EOMI, normal conjunctiva, no scleral icterus HENT: Normocephalic, atraumatic, clear tympanic membranes, normal hearing, moist oral mucosa, no sinus tenderness Neck: Supple, non-tender, no carotid bruits, no JVD, no lymphadenopathy Lungs: Non-labored respirations, symmetric chest rise, +wheezing in bilateral lower lung tellez, crackles in left mid lung tellez, no crackles appreciated on right lung base Heart: Normal S1 and S2, no S3 or S4 appreciated. Normal rate and regular rhythm, no murmurs, rubs gallops, or edema. Peripheral pulses intact bilaterally, capillary refill brisk distally Abdomen: Soft, non-tender, non-distended, normal bowel sounds, no masses Musculoskeletal: Normal range of motion. Left upper extremity with edema from shoulder to wrist. Elevated with pillows underneath in bed Skin: Edema, erythema, mild pain upon palpation in the left upper extremity to shoulder,. Right upper extremity without abnormalities. Neurologic: Alert, awake and oriented x3. Cranial nerves: II through XII grossly intact. Sensation intact in the bilateral upper extremities. Unable to test motor function as exam limited due to pain. Psychiatric: Cooperative, appropriate mood and affect Discharge Plan Plan Patient Disposition: Xfer Other Facility Pt Being Transferred to: [facility] Service Needed for Transfer: Gastroenterology Disposition Comment: [place] ambulance and transfer nurse transporting patient to [facility] Patient condition on transfer: Stable and Benefits outweigh risks Prescriptions/Referrals Prescriptions/Med Rec: No Action albuterol sulfate 90 mcg/actuation HFA aerosol inhaler 2 puff INHALATION DAILY Referrals: Luis Alberto Conley PA-C [Primary Care Provider] - Patient/Caregiver Discharge Instructions Print Language: Salvadorean Stand Alone Forms: [employer] Award Info., Patient Portal Info Letter Discharge Order Discharge Orders: Discharge (Routine); Ordered 01/03/25 Ordered By: Roz Gibbons Quality Discharge Quality Measures VTE prophylaxis and VTE therapy MD Attestestation MD Attestation I attest that I was physically present for the evaluation, physical examination, lab and imaging review of the patient with the residents. I discussed the case with the residents and agree with the findings and plans of care as documented above. Inez Reyes MD
[2025-01-03 12:00] VITALS: BP 125/63; PULSE 77; PULSE 95; RESP 18; TEMP 37.1; O2SAT 96
[2025-01-08 07:41] LABS: CA 19-9 Antigen* 15 U/mL (<34)
== END 2025-01-03 14:10 | disposition short-term general hospital (02) ==
LOC: SERX 12-30 01:33 → SERHOLD 12-30 02:07 → S3NX 12-31 08:55 → S3SX 01-02 21:27
PROVIDERS: Physician Assistant; Admitting Provider Student in an Organized Health Care Education/Training Program; Emergency Provider Emergency Medicine; PCP Physician Assistant; Visit Provider Student in an Organized Health Care Education/Training Program
DX: K80.71 Calculus of gallbladder and bile duct without cholecystitis with obstruction (principal); I82.B12 Acute embolism and thrombosis of left subclavian vein; J47.0 Bronchiectasis with acute lower respiratory infection; J18.9 Pneumonia, unspecified organism; J44.0 Chronic obstructive pulmonary disease with (acute) lower respiratory infection; E87.1 Hypo-osmolality and hyponatremia; D75.838 Other thrombocytosis; R16.0 Hepatomegaly, not elsewhere classified; K76.9 Liver disease, unspecified; D64.9 Anemia, unspecified; F10.91 Alcohol use, unspecified, in remission; F17.210 Nicotine dependence, cigarettes, uncomplicated; Z75.1 Person awaiting admission to adequate facility elsewhere
CPT/HCPCS: 36415; 71046; 71275; 74183; 76705; 80053; 80307; 81001; 82105; 82378; 82728; 83036; 83540; 83550; 83605; 83735; 83880; 84100; 84145; 84484; 85025; 85610; 85652; 85730; 86140; 86301; 86331; 86635; 87081; 87205; 87400; 87811; 93225; 93971; 94640; 96365; 97162; A4649; A9270; A9579; G0378; J0456; J0696; J1200; J1644; J3475; J7030; J7050; Q9967; S8037; 74181